=== PATIENT | female | born 1960 | race Caucasian/White ===

== ENCOUNTER → 2017-11-25 | Outpatient (CLI) | payer BC ==
[2017-11-25 14:24] LABS: INFLUENZA A PATIENT NEGATIVE (NEGATIVE); INFLUENZA B PATIENT NEGATIVE (NEGATIVE); OBC FLU VALID
[2017-11-25 14:36] LABS: NEGATIVE OBC STREP NEG; POSITIVE OBC STREP POS
== END | disposition home or self-care (01) ==
LOC: LAB 13:33
DX: J06.9 Acute upper respiratory infection, unspecified (principal)
CPT/HCPCS: 87070; 87804; 87804-59; 87880

== ENCOUNTER 2018-04-05 07:27 | Outpatient (CLI) | payer BC ==
[~2018-04-05] VITALS: Ht 152.4 cm; Wt 72.6 kg
[~2018-04-05 07:27] MED LIST: AMLO5TAB2 PO; ATOR40TA PO; CARI350T PO; DOCU-109 PO; FLUT1DIS5 IH; HYDR-210 PO; LOSA50TA6 PO; MONT10TA9 PO; MONT4GRA PO; OMEP20CA9 PO; ZOLP10TA PO
[2018-04-05] MEDS ORDERED: MIDAZOLAM HCL/PF 5 MG/5 ML VIAL. ONE (08:02)
[2018-04-05] MEDS ORDERED: fentaNYL PF VIAL 250 MCG/5 ML VIAL ONE (08:02)
[2018-04-05] MEDS ORDERED: fentaNYL PF VIAL 250 MCG/5 ML VIAL IV ONE (08:15)
[2018-04-05] MEDS ORDERED: MIDAZOLAM HCL/PF 5 MG/5 ML VIAL. IV ONE (08:15)
[2018-04-05] MEDS ORDERED: LIDOCAINE WITH 8.4% SOD BICARB 3 ML DISP.SYRIN. IJ ONE (08:15)
[2018-04-05 08:23] VITALS: BP 100/63
[2018-04-05 08:25] LABS: BASO % 1 % (0-3); EOS % 1 % (0-3); HEMATOCRIT 46.8 % (36.0-47.0); HEMOGLOBIN 16.1 g/dL (12.0-15.5); LYMPH # 2.8 x10^3/uL (1.0-4.8); LYMPH % 33 % (24-48); MEAN CORPUSCULAR HEMOGLOBIN 31 pg (25-35); MEAN CORPUSCULAR HGB CONC 34 g/dL (31-37); MEAN CORPUSCULAR VOLUME 90 fL (79-100); MONO # 0.8 x10^3/uL (0.0-1.1); MONO % 10 % (0-9); NEUT # 4.6 x10^3uL (1.8-7.7); NEUT % 56 % (31-73); PLATELET COUNT 312 x10^3/uL (140-400); RED BLOOD COUNT 5.19 x10^6/uL (3.50-5.40); RED CELL DISTRIBUTION WIDTH 14.6 % (11.5-14.5); WHITE BLOOD COUNT 8.3 x10^3/uL (4.0-11.0)
[2018-04-05 08:26] LABS: ALBUMIN 3.9 g/dL (3.4-5.0); ALBUMIN/GLOBULIN RATIO 1.1 (1.0-1.7); CALCIUM 9.1 mg/dL (8.5-10.1); CREATININE 0.5 mg/dL (0.6-1.0); GFR 127.6; POTASSIUM 3.5 mmol/L (3.5-5.1); TOTAL BILIRUBIN 0.3 mg/dL (0.2-1.0); TOTAL PROTEIN 7.5 g/dL (6.4-8.2)
[2018-04-05 08:30] LABS: PROTHROMBIN TIME PATIENT 12.1 SEC (11.7-14.0)
[2018-04-05] MEDS ORDERED: LIDOCAINE WITH 8.4% SOD BICARB 3 ML DISP.SYRIN. ONE ×2 (08:50→09:14)
[2018-04-05 09:35] VITALS: BP 123/76
[2018-04-05 09:50] VITALS: BP 101/52
--- NOTE | 2018-04-05 10:36 | RAD ---
Fluoroscopically guided percutaneous vertebroplasty, T7 04/05/2018 Indication: T7 compression fracture with severe back pain, refractory to conservative treatment measures. Pain limits her mobility. Discussion: The risks and benefits of the procedure were discussed the patient. Informed consent was obtained. A timeout procedure was performed. The posterior thorax prepped and draped using sterile barrier technique. The T7 vertebrae was identified fluoroscopically. 1% lidocaine without epinephrine was administered to the skin, subcutaneous tissues, periosteum overlying the bilateral pedicles. A trocar needle was advanced from a left transpedicular approach into the posterior T7 vertebral body. The curved cement delivery needle was advanced to the vertebral body. Methylmethacrylate bone cement was slowly instilled into the vertebral body. The right-sided vertebral body demonstrated inadequate filling. A right transpedicular trocar needle was placed, and a second cement delivery needle was advanced into the posterior right vertebral body and further cement administration was performed. Small amount of cement extravasation into the inferior disc space was noted. No other abnormal segment extravasation is seen. Needle removed and manual pressure held. The patient tolerated the procedure well without immediate complication. The procedures performed under conscious sedation including continuous cardiopulmonary monitoring via a dedicated sedation nurse. [id number] sedation time: 1 hour. Fluoroscopy time: 14 minutes Dose area product:140 uGycm2 Impression: T7 vertebral augmentation
[2018-04-05] MEDS ORDERED: oxyCODONE/APAP 5/325 1 TAB TABLET PO ONE (11:00)
[2018-04-05] MEDS ORDERED: OXYC-323 PO (11:24)
== END 2018-04-05 13:00 | disposition home or self-care (01) ==
LOC: INTRAD 07:27
PROVIDERS: ATTEND Physical Medicine & Rehabilitation
DX: M48.54XA Collapsed vertebra, not elsewhere classified, thoracic region, initial encounter for fracture (principal); M54.6 Pain in thoracic spine; Z88.5 Allergy status to narcotic agent; Z88.8 Allergy status to other drugs, medicaments and biological substances; Z79.01 Long term (current) use of anticoagulants
CPT/HCPCS: 22510; 36415; 80053; 85025; 85610; 99152; 99153; C1758; J0690; J2250; J3010

== ENCOUNTER 2019-10-14 10:59 | Inpatient (IN) | payer BC ==
[~2019-10-14] VITALS: Ht 152.4 cm; Wt 79.5 kg
[~2019-10-14 10:59] MED LIST changes: +AMLO5TAB10 PO; -AMLO5TAB2 PO; +LOSA-73 PO; -LOSA50TA6 PO; +MONT10TA49 PO; -MONT10TA9 PO; +OMEP20CA16 PO; -OMEP20CA9 PO; +OXYC1TAB15 PO
[2019-10-14] MEDS ORDERED: IPRATRPIUM/ALBUTEROL 0.5/2.5MG 3 ML NEBU. NEB ONE ×2 (11:30→12:30)
[2019-10-14] MEDS ORDERED: predniSONE 20 MG TABLET PO ONE (11:30)
[2019-10-14] MEDS ORDERED: BENZONATATE 100 MG CAPSULE. PO ONE (11:30)
[2019-10-14 12:11] LABS: INFLUENZA A PATIENT NEGATIVE (NEGATIVE); INFLUENZA B PATIENT NEGATIVE (NEGATIVE)
--- NOTE | 2019-10-14 12:15 | RAD ---
CHEST PA LATERAL Clinical indications: Cough. COMPARISON: August 18, 2013. Findings: Hyperinflation is seen consistent with COPD. There is increased interstitial and nodular lung infiltrates within both lung bases which is new. No pleural effusion or lung mass or pneumothorax is seen. The heart size, pulmonary vasculature, mediastinum and both shannen are unremarkable. Compression fracture mid thoracic vertebral body seen which has been treated with vertebroplasty. Impression: COPD. Bibasilar lung infiltrates. Electronically signed by: Bhupendra Campos MD (10/14/2019 12:12 PM) [facility]
[2019-10-14] MEDS ORDERED: ALBUTEROL SULFATE 2.5 MG/3 ML NEBU. CONT NEB ONE (12:30)
[2019-10-14] MEDS ORDERED: AZITHRMYCN 500MG IVPB FOR OMNI 250 ML IV ONE (13:00)
[2019-10-14] MEDS ORDERED: cefTRIAXone IV Push 1 GM VIAL. IVP ONE (13:00)
[2019-10-14 13:27] LABS: CALCIUM 8.7 mg/dL (8.5-10.1); CREATININE 0.6 mg/dL (0.6-1.0); POTASSIUM 3.1 mmol/L (3.5-5.1)
[2019-10-14 13:29] LABS: BASO % 0 % (0-3); EOS % 0 % (0-3); HEMATOCRIT 37.6 % (36.0-47.0); HEMOGLOBIN 12.7 g/dL (12.0-15.5); LYMPH # 1.2 x10^3/uL (1.0-4.8); LYMPH % 11 % (24-48); MEAN CORPUSCULAR HEMOGLOBIN 30 pg (25-35); MEAN CORPUSCULAR HGB CONC 34 g/dL (31-37); MEAN CORPUSCULAR VOLUME 89 fL (79-100); MONO # 0.6 x10^3/uL (0.0-1.1); MONO % 5 % (0-9); NEUT # 9.6 x10^3/uL (1.8-7.7); NEUT % 83 % (31-73); PLATELET COUNT 497 x10^3/uL (140-400); RED BLOOD COUNT 4.23 x10^6/uL (3.50-5.40); WHITE BLOOD COUNT 11.6 x10^3/uL (4.0-11.0)
[2019-10-14] MEDS ORDERED: POTASSIUM CHLORIDE 20 MEQ TABLET.ER. PO ONE (13:30)
[2019-10-14 13:33] LABS: ALBUMIN 2.7 g/dL (3.4-5.0); ALBUMIN/GLOBULIN RATIO 0.6 (1.0-1.7); TOTAL BILIRUBIN 0.2 mg/dL (0.2-1.0); TOTAL PROTEIN 7.6 g/dL (6.4-8.2)
[2019-10-14] MEDS ORDERED: ONDANSETRON PF 4 MG/2 ML VIAL. IV PRN ×2 (14:30→15:15)
[2019-10-14] MEDS ORDERED: ACETAMINOPHEN 325 MG TABLET. PO PRN ×2 (14:30→15:15)
--- NOTE | 2019-10-14 14:35 | PHYS DOC ---
Past Medical History Past Medical History: Bronchitis, COPD, High Cholesterol Additional Past Medical Histor: OSTEOPOROSIS, CHRONIC NECK AND BACK PAIN Past Surgical History: Appendectomy, Hysterectomy, Tonsillectomy, Tubal ligation Additional Past Surgical Histo: BLADDER TIGHTENING Smoking Status: Current Every Day Smoker Alcohol Use: None Drug Use: Marijuana Adult General Chief Complaint Chief Complaint: FLU SYMPTOM HPI HPI Patient is a 58 year old female who presents to the ED today complaining of a productive cough, body aches, chills, subjective fevers, shortness of breath symptoms for 3 weeks. Patient reports history of COPD, current smoker, high cholesterol, asthma. Patient reports symptoms got worse this morning when she woke up, she states her shortness of breath and increased especially on exertion. Review of Systems Review of Systems Constitutional: Reports fever, body aches and chills Eyes: Denies change in visual acuity, redness, or eye pain [] HENT: Denies nasal congestion or sore throat [] Respiratory: Reports cough and shortness of breath [] Cardiovascular: No additional information not addressed in HPI [] GI: Denies abdominal pain, nausea, vomiting, bloody stools or diarrhea [] : Denies dysuria or hematuria [] Musculoskeletal: Denies back pain or joint pain [] Integument: Denies rash or skin lesions [] Neurologic: Denies headache, focal weakness or sensory changes [] All other systems were reviewed and found to be within normal limits, except as documented in this note. Current Medications Current Medications Current Medications Medications (Trade) Dose Ordered Sig/Tammi Start Time Stop Time Status Last Admin Dose Admin Albuterol Sulfate (Ventolin Neb Soln) 10 mg 1X ONCE 10/14/19 12:30 10/14/19 12:31 DC 10/14/19 12:39 10 MG Albuterol/ Ipratropium (Duoneb) 3 ml 1X ONCE 10/14/19 12:30 10/14/19 12:31 DC 10/14/19 12:39 3 ML Azithromycin 250 ml @ 250 mls/hr 1X ONCE 10/14/19 13:00 10/14/19 13:59 DC 10/14/19 13:24 250 MLS/HR Benzonatate (Tessalon Perle) 100 mg 1X ONCE 10/14/19 11:30 10/14/19 11:31 DC 2/22/20 11:26 100 MG Ceftriaxone Sodium (Rocephin) 1 gm 1X ONCE 10/14/19 13:00 10/14/19 13:01 DC 10/14/19 13:25 1 GM Potassium Chloride (Klor-Con) 40 meq 1X ONCE 10/14/19 13:30 10/14/19 13:31 DC 10/14/19 14:30 40 MEQ Prednisone (Prednisone) 60 mg 1X ONCE 10/14/19 11:30 10/14/19 11:31 DC 10/14/19 11:26 60 MG Allergies Allergies Allergies Coded Allergies Type Severity Reaction Last Updated Verified NSAIDS (Non-Steroidal Anti-Inflamma Allergy Intermediate CAUSES STOMACH IRRITATION 11/19/15 Yes morphine Allergy Intermediate blisters 04/05/18 Yes Physical Exam Physical Exam Constitutional: Well developed, well nourished, no acute distress, non-toxic appearance. [] HENT: Normocephalic, atraumatic, bilateral external ears normal, oropharynx moist, no oral exudates, nose normal. [] Eyes: PERRLA, EOMI, conjunctiva normal, no discharge. [] Neck: Normal range of motion, no tenderness, supple, no stridor. [] Cardiovascular:Heart rate regular rhythm, no murmur [] Lungs & Thorax: Diffuse wheezing throughout the lung bases, patient appears short of air on exertion. Abdomen: Bowel sounds normal, soft, no tenderness, no masses, no pulsatile masses. [] Skin: Warm, dry, no erythema, no rash. [] Back: No tenderness, no CVA tenderness. [] Extremities: No tenderness, no cyanosis, no clubbing, ROM intact, no edema. [] Neurologic: Alert and oriented X 3, normal motor function, normal sensory function, no focal deficits noted. [] Psychologic: Affect normal, judgement normal, mood normal. [] Current Patient Data Vital Signs Vital Signs Date Time Temp Pulse Resp B/P (MAP) Pulse Ox O2 Delivery O2 Flow Rate FiO2 10/14/19 13:15 90 145/65 (91) 93 Nasal Cannula 4.0 10/14/19 11:20 98.5 24 98.5 Lab Values Laboratory Tests Test 10/14/19 11:30 10/14/19 13:00 10/14/19 13:15 Influenza Type A Antigen Negative (NEGATIVE) Influenza Type B Antigen Negative (NEGATIVE) Sodium Level 141 mmol/L (136-145) Potassium Level 3.1 mmol/L (3.5-5.1) L Chloride Level 98 mmol/L (98-107) Carbon Dioxide Level 35 mmol/L (21-32) H Anion Gap 8 (6-14) Blood Urea Nitrogen 8 mg/dL (7-20) Creatinine 0.6 mg/dL (0.6-1.0) Estimated GFR (Cockcroft-Gault) 103.0 BUN/Creatinine Ratio 13 (6-20) Glucose Level 110 mg/dL (70-99) H Calcium Level 8.7 mg/dL (8.5-10.1) Total Bilirubin 0.2 mg/dL (0.2-1.0) Aspartate Amino Transferase (AST) 19 U/L (15-37) Alanine Aminotransferase (ALT) 22 U/L (14-59) Alkaline Phosphatase 92 U/L (46-116) Total Protein 7.6 g/dL (6.4-8.2) Albumin 2.7 g/dL (3.4-5.0) L Albumin/Globulin Ratio 0.6 (1.0-1.7) L Procalcitonin < 0.10 ng/mL (0.00-0.10) White Blood Count 11.6 x10^3/uL (4.0-11.0) H Red Blood Count 4.23 x10^6/uL (3.50-5.40) Hemoglobin 12.7 g/dL (12.0-15.5) Hematocrit 37.6 % (36.0-47.0) Mean Corpuscular Volume 89 fL (79-100) Mean Corpuscular Hemoglobin 30 pg (25-35) Mean Corpuscular Hemoglobin Concent 34 g/dL (31-37) Red Cell Distribution Width 15.0 % (11.5-14.5) H Platelet Count 497 x10^3/uL (140-400) H Neutrophils (%) (Auto) 83 % (31-73) H Lymphocytes (%) (Auto) 11 % (24-48) L Monocytes (%) (Auto) 5 % (0-9) Eosinophils (%) (Auto) 0 % (0-3) Basophils (%) (Auto) 0 % (0-3) Neutrophils # (Auto) 9.6 x10^3/uL (1.8-7.7) H Lymphocytes # (Auto) 1.2 x10^3/uL (1.0-4.8) Monocytes # (Auto) 0.6 x10^3/uL (0.0-1.1) Eosinophils # (Auto) 0.0 x10^3/uL (0.0-0.7) Basophils # (Auto) 0.0 x10^3/uL (0.0-0.2) Lactic Acid Level 0.6 mmol/L (0.4-2.0) Laboratory Tests 10/14/19 13:15 Laboratory Tests 10/14/19 13:00 EKG EKG [] Radiology/Procedures Radiology/Procedures []PROCEDURE: CHEST PA & LATERAL CHEST PA LATERAL Clinical indications: Cough. COMPARISON: August 18, 2013. Findings: Hyperinflation is seen consistent with COPD. There is increased interstitial and nodular lung infiltrates within both lung bases which is new. No pleural effusion or lung mass or pneumothorax is seen. The heart size, pulmonary vasculature, mediastinum and both shannen are unremarkable. Compression fracture mid thoracic vertebral body seen which has been treated with vertebroplasty. Impression: COPD. Bibasilar lung infiltrates. Electronically signed by: Jose Campos MD (10/14/2019 12:12 PM) [facility] DICTATED and SIGNED BY: JOSE CAMPOS MD DATE: 10/14/19 1212 Course & Med Decision Making Course & Med Decision Making Pertinent Labs and Imaging studies reviewed. (See chart for details) This is a 58-year-old female patient presenting to the ED today with productive cough, shortness of breath, subjective fevers body aches symptoms began 3 weeks ago. Patient arrives in the ED with O2 sats at 77% on room air. He was put on 4 L of oxygen, O2 sats went up to 90%. Chest x-ray interpreted by radiologist -COPD. Bibasilar lung infiltrates. CBC with a WBC of 11.6, CMP with potassium of 3.1, patient was given oral potassium replacement. Started on Rocephin and Zosyn in the ED Spoke with Dr. Asif who accepted patient for admission Dragon Disclaimer Dragon Disclaimer This electronic medical record was generated, in whole or in part, using a voice recognition dictation system. Departure Departure Impression: Primary Impression: Bilateral pulmonary infiltrates on chest x-ray Additional Impressions: Hypoxia COPD exacerbation Smoking addiction Disposition: 09 ADMITTED INPATIENT Condition: STABLE Referrals: AWILDA DEAL MD (PCP) Problem Qualifiers PERNELL JOSHI APRN Oct 14, 2019 14:35
[2019-10-14 15:00] VITALS: BP 127/71
[2019-10-14] MEDS ORDERED: ALEN70TA6 PO (15:12)
[2019-10-14] MEDS ORDERED: BUDE10.2 IH ×2 (15:12→15:47)
[2019-10-14] MEDS ORDERED: CETI10TA16 PO (15:12)
--- NOTE | 2019-10-14 15:13 | PDOC1 ---
History and Physical Date of Admission Date of Admission 10/14/2019 Identification/Chief Complaint Chief Complaint I couldn't breathe Source Source: Chart review, Patient History of Present Illness History of Present Illness Patient is a 58-year-old female with past medical history of hypertension COPD and tobacco abuse was in her usual state of health until 4 weeks prior to her admission when she started developing cold-like symptoms. Sneezing congestion postnasal drip cough productive of sputum production clear. Patient denied any sick contacts no fever or chills no pleurisy was reported. The patient self medicated with NyQuil and DayQuil with very little relief of her symptoms. She did not seek medical attention at that time but unfortunately he she has developed worsening of her symptoms and over the last 4 days she has been unable to do her activities of daily living without significant effort. This morning the patient was found to be quite short of breath and she was summoned to the ER by her where she was found to have an oxygen saturation the mid 80s. The patient did not percent confusion she denies headache at the present time no blurred vision she has had very low oral intake as a consequence of her symptoms and she did develop some chills the day prior to her admission. The patient was evaluated in the emergency department and found to have a pneumonia reason why we were asked to admit the patient for further treatment. At the time my evaluation the patient is in no acute distress her respiratory effort is somewhat increase, the patient is an active smoker and greater than 5 minutes counseling was done and the importance of abstaining from smoking was stressed to the patient. Her significant other is at bedside and is also a green with the proposed plan of care. Past Medical History Cardiovascular: HTN Pulmonary: COPD Current Problem List Problem List Problems Medical Problems: (1) Bilateral pulmonary infiltrates on chest x-ray Status: Acute (2) COPD exacerbation Status: Acute (3) Hypoxia Status: Acute Current Medications Current Medications Current Medications Medications (Trade) Dose Ordered Sig/Tammi Start Time Stop Time Status Last Admin Dose Admin Acetaminophen (Tylenol) 650 mg PRN Q4HRS PRN 10/14/19 14:30 10/15/19 14:29 10/14/19 14:52 650 MG Albuterol Sulfate (Ventolin Neb Soln) 10 mg 1X ONCE 10/14/19 12:30 10/14/19 12:31 DC 10/14/19 12:39 10 MG Albuterol/ Ipratropium (Duoneb) 3 ml RTQID 10/14/19 16:00 10/15/19 15:59 Azithromycin 250 ml @ 250 mls/hr 1X ONCE 10/14/19 13:00 10/14/19 13:59 DC 10/14/19 13:24 250 MLS/HR Benzonatate (Tessalon Perle) 100 mg 1X ONCE 10/14/19 11:30 10/14/19 11:31 DC 10/14/19 11:26 100 MG Ceftriaxone Sodium (Rocephin) 1 gm 1X ONCE 10/14/19 13:00 10/14/19 13:01 DC 10/14/19 13:25 1 GM Ondansetron HCl (Zofran) 4 mg PRN Q8HRS PRN 10/14/19 14:30 10/15/19 14:29 Potassium Chloride (Klor-Con) 40 meq 1X ONCE 10/14/19 13:30 10/14/19 13:31 DC 10/14/19 14:30 40 MEQ Prednisone (Prednisone) 60 mg 1X ONCE 10/14/19 11:30 10/14/19 11:31 DC 10/14/19 11:26 60 MG Allergies Allergies Allergies Coded Allergies Type Severity Reaction Last Updated Verified NSAIDS (Non-Steroidal Anti-Inflamma Allergy Intermediate CAUSES STOMACH IRRITATION 11/19/15 Yes morphine Allergy Intermediate blisters 04/05/18 Yes ROS Review of System CONSTITUTIONAL: + fever + chills EYES: No recent changes SKIN: No rash or itching CARDIOVASCULAR: No chest pain, syncope, palpitations, or edema RESPIRATORY: + SOB and cough GASTROINTESTINAL: No nausea, vomiting or abdominal pain NEUROLOGICAL: No headaches or weakness ENDOCRINE: No cold or heat intolerance GENITOURINARY: No urgency or frequency of urination MUSCULOSKELETAL: No back pain or joint pain LYMPHATICS: No enlarged lymph nodes PSYCHIATRIC: No anxiety or depression Physical Exam Physical Exam Gen.: Obese and disheveled and moderate apparent distress Head: Normal shape atraumatic Eyes: Pupils equal reactive to light and accommodation, normal conjunctivae and lids Ears: Normal shape Nose: Normal shape no trauma Mouth: Poor dentition. No exudates of the back of throat no thrush no lesions Neck: Supple no JVD no carotid bruit or lymphadenopathy no thyromegaly Chest: Lungs clear to auscultation with good inspiratory effort no crackles rales or rhonchi Cardiovascular: S1-S2 regular rhythm no murmurs gallops or rubs Abdomen: Bowel sounds present soft nontender no hepatosplenomegaly appreciated sign Extremities: No clubbing no cyanosis no edema peripheral pulses palpated bilaterally Neurological: Alert awake oriented in person time place and situation, cranial nerves II through XII intact, no motor or sensory deficits appreciated Psych: Appropriate mood, cooperative Vitals Vitals Vital Signs Date Time Temp Pulse Resp B/P (MAP) Pulse Ox O2 Delivery O2 Flow Rate FiO2 10/14/19 13:15 90 145/65 (91) 93 Nasal Cannula 4.0 10/14/19 11:20 98.5 24 98.5 Labs Labs Laboratory Tests Test 10/14/19 11:30 10/14/19 13:00 10/14/19 13:15 Influenza Type A Antigen Negative (NEGATIVE) Influenza Type B Antigen Negative (NEGATIVE) Sodium Level 141 mmol/L (136-145) Potassium Level 3.1 mmol/L (3.5-5.1) Chloride Level 98 mmol/L (98-107) Carbon Dioxide Level 35 mmol/L (21-32) Anion Gap 8 (6-14) Blood Urea Nitrogen 8 mg/dL (7-20) Creatinine 0.6 mg/dL (0.6-1.0) Estimated GFR (Cockcroft-Gault) 103.0 BUN/Creatinine Ratio 13 (6-20) Glucose Level 110 mg/dL (70-99) Calcium Level 8.7 mg/dL (8.5-10.1) Total Bilirubin 0.2 mg/dL (0.2-1.0) Aspartate Amino Transf (AST/SGOT) 19 U/L (15-37) Alanine Aminotransferase (ALT/SGPT) 22 U/L (14-59) Alkaline Phosphatase 92 U/L (46-116) Total Protein 7.6 g/dL (6.4-8.2) Albumin 2.7 g/dL (3.4-5.0) Albumin/Globulin Ratio 0.6 (1.0-1.7) Procalcitonin < 0.10 ng/mL (0.00-0.10) White Blood Count 11.6 x10^3/uL (4.0-11.0) Red Blood Count 4.23 x10^6/uL (3.50-5.40) Hemoglobin 12.7 g/dL (12.0-15.5) Hematocrit 37.6 % (36.0-47.0) Mean Corpuscular Volume 89 fL (79-100) Mean Corpuscular Hemoglobin 30 pg (25-35) Mean Corpuscular Hemoglobin Concent 34 g/dL (31-37) Red Cell Distribution Width 15.0 % (11.5-14.5) Platelet Count 497 x10^3/uL (140-400) Neutrophils (%) (Auto) 83 % (31-73) Lymphocytes (%) (Auto) 11 % (24-48) Monocytes (%) (Auto) 5 % (0-9) Eosinophils (%) (Auto) 0 % (0-3) Basophils (%) (Auto) 0 % (0-3) Neutrophils # (Auto) 9.6 x10^3/uL (1.8-7.7) Lymphocytes # (Auto) 1.2 x10^3/uL (1.0-4.8) Monocytes # (Auto) 0.6 x10^3/uL (0.0-1.1) Eosinophils # (Auto) 0.0 x10^3/uL (0.0-0.7) Basophils # (Auto) 0.0 x10^3/uL (0.0-0.2) Lactic Acid Level 0.6 mmol/L (0.4-2.0) Laboratory Tests Test 10/14/19 11:30 10/14/19 13:00 10/14/19 13:15 Influenza Type A Antigen Negative (NEGATIVE) Influenza Type B Antigen Negative (NEGATIVE) Sodium Level 141 mmol/L (136-145) Potassium Level 3.1 mmol/L (3.5-5.1) Chloride Level 98 mmol/L (98-107) Carbon Dioxide Level 35 mmol/L (21-32) Anion Gap 8 (6-14) Blood Urea Nitrogen 8 mg/dL (7-20) Creatinine 0.6 mg/dL (0.6-1.0) Estimated GFR (Cockcroft-Gault) 103.0 BUN/Creatinine Ratio 13 (6-20) Glucose Level 110 mg/dL (70-99) Calcium Level 8.7 mg/dL (8.5-10.1) Total Bilirubin 0.2 mg/dL (0.2-1.0) Aspartate Amino Transf (AST/SGOT) 19 U/L (15-37) Alanine Aminotransferase (ALT/SGPT) 22 U/L (14-59) Alkaline Phosphatase 92 U/L (46-116) Total Protein 7.6 g/dL (6.4-8.2) Albumin 2.7 g/dL (3.4-5.0) Albumin/Globulin Ratio 0.6 (1.0-1.7) Procalcitonin < 0.10 ng/mL (0.00-0.10) White Blood Count 11.6 x10^3/uL (4.0-11.0) Red Blood Count 4.23 x10^6/uL (3.50-5.40) Hemoglobin 12.7 g/dL (12.0-15.5) Hematocrit 37.6 % (36.0-47.0) Mean Corpuscular Volume 89 fL (79-100) Mean Corpuscular Hemoglobin 30 pg (25-35) Mean Corpuscular Hemoglobin Concent 34 g/dL (31-37) Red Cell Distribution Width 15.0 % (11.5-14.5) Platelet Count 497 x10^3/uL (140-400) Neutrophils (%) (Auto) 83 % (31-73) Lymphocytes (%) (Auto) 11 % (24-48) Monocytes (%) (Auto) 5 % (0-9) Eosinophils (%) (Auto) 0 % (0-3) Basophils (%) (Auto) 0 % (0-3) Neutrophils # (Auto) 9.6 x10^3/uL (1.8-7.7) Lymphocytes # (Auto) 1.2 x10^3/uL (1.0-4.8) Monocytes # (Auto) 0.6 x10^3/uL (0.0-1.1) Eosinophils # (Auto) 0.0 x10^3/uL (0.0-0.7) Basophils # (Auto) 0.0 x10^3/uL (0.0-0.2) Lactic Acid Level 0.6 mmol/L (0.4-2.0) Images Images [facility] [address] [place] [address] IMAGING REPORT Signed PATIENT: COLLEEN HOLLY AACCOUNT: [id number] : 1960 LOCATION: ER AGE: 58 SEX: F EXAM STATUS: PRE ER ORD. PHYSICIAN: PERNELL JOSHI APRN REASON: cough PROCEDURE: CHEST PA & LATERAL CHEST PA LATERAL Clinical indications: Cough. COMPARISON: August 18, 2013. Findings: Hyperinflation is seen consistent with COPD. There is increased interstitial and nodular lung infiltrates within both lung bases which is new. No pleural effusion or lung mass or pneumothorax is seen. The heart size, pulmonary vasculature, mediastinum and both shannen are unremarkable. Compression fracture mid thoracic vertebral body seen which has been treated with vertebroplasty. Impression: COPD. Bibasilar lung infiltrates. Electronically signed by: Bhupendra Campos MD (10/14/2019 12:12 PM) [facility] VTE Prophylaxis Ordered VTE Prophylaxis Devices: No VTE Pharmacological Prophylaxi: Yes Assessment/Plan Assessment/Plan Bibasilar community-acquired pneumonia History of tobacco abuse greater than [id number] history of smoking COPD currently in acute exacerbation secondary to pneumonic process History of essential hypertension Leukocytosis Hypo kalemia Plan: Protocol with Rocephin and Zithromax Resume home medications Tobacco counseling has been done less than 10 minutes Resume home medications Symptomatic relief of symptoms Further recommendations based on the clinical course sign due to prophylaxis with Lovenox HERMELINDO FLORES MD Oct 14, 2019 15:13
[2019-10-14] MEDS ORDERED: ZOLPIDEM 5 MG TABLET. PO PRN (15:15)
[2019-10-14] MEDS ORDERED: DOCUSATE SODIUM 100 MG CAPSULE. PO PRN (15:15)
[2019-10-14] MEDS ORDERED: guaiFENesin ORAL 200 MG/10 ML LIQUID. PO PRN ×2 (15:15)
[2019-10-14] MEDS ORDERED: IPRATRPIUM/ALBUTEROL 0.5/2.5MG 3 ML NEBU. NEB SCH (16:00)
[2019-10-14] MEDS: ENOXAPARIN 40 MG/0.4 ML SYRINGE. SQ SCH (16:37)
[2019-10-14] MEDS: IPRATRPIUM/ALBUTEROL 0.5/2.5MG 3 ML NEBU. NEB SCH ×2 (17:11→19:48)
[2019-10-14] MEDS: oxyCODONE/APAP 5/325 1 TAB TABLET PO PRN (18:22)
[2019-10-14 19:00] VITALS: BP 120/62
[2019-10-14] MEDS: ATORVASTATIN CALCIUM 40 MG TABLET. PO SCH (21:16)
[2019-10-14] MEDS: DOCUSATE SODIUM 100 MG CAPSULE. PO SCH (21:16)
[2019-10-14] MEDS: MONTELUKAST SODIUM 10 MG TABLET. PO SCH (21:16)
[2019-10-14] MEDS: ZOLPIDEM 5 MG TABLET. PO SCH (21:16)
[2019-10-14] MEDS: SYMBICORT 160/4.5 NEB SCH (21:17)
[2019-10-14 23:00] VITALS: BP 132/61
[2019-10-15 03:00] VITALS: BP 126/52
[2019-10-15] MEDS: oxyCODONE/APAP 5/325 1 TAB TABLET PO PRN ×4 (03:32→20:43)
[2019-10-15] MEDS: IPRATRPIUM/ALBUTEROL 0.5/2.5MG 3 ML NEBU. NEB SCH ×5 (04:00→16:34)
[2019-10-15 05:11] LABS: BASO % 0 % (0-3); EOS % 0 % (0-3); HEMATOCRIT 36.3 % (36.0-47.0); HEMOGLOBIN 11.9 g/dL (12.0-15.5); LYMPH % 24 % (24-48); MEAN CORPUSCULAR HEMOGLOBIN 29 pg (25-35); MEAN CORPUSCULAR HGB CONC 33 g/dL (31-37); MEAN CORPUSCULAR VOLUME 90 fL (79-100); MONO # 1.2 x10^3/uL (0.0-1.1); MONO % 14 % (0-9); NEUT # 5.4 x10^3/uL (1.8-7.7); NEUT % 62 % (31-73); PLATELET COUNT 476 x10^3/uL (140-400); RED BLOOD COUNT 4.05 x10^6/uL (3.50-5.40); RED CELL DISTRIBUTION WIDTH 14.8 % (11.5-14.5); WHITE BLOOD COUNT 8.6 x10^3/uL (4.0-11.0)
[2019-10-15 05:38] LABS: CALCIUM 8.5 mg/dL (8.5-10.1); CREATININE 0.5 mg/dL (0.6-1.0); GFR 127.2; POTASSIUM 3.2 mmol/L (3.5-5.1)
[2019-10-15] MEDS: LORazepam 0.5 MG TABLET PO PRN ×3 (06:33→22:15)
[2019-10-15] MEDS: PANTOPRAZOLE 40 MG TABLET.DR. PO SCH (06:33)
[2019-10-15 07:00] VITALS: BP 131/66
[2019-10-15] MEDS: LOSARTAN POTASSIUM 50 MG TABLET. PO SCH (08:44)
[2019-10-15] MEDS: CETIRIZINE HCL 10 MG TABLET. PO SCH (08:44)
[2019-10-15] MEDS: DOCUSATE SODIUM 100 MG CAPSULE. PO SCH ×2 (08:44→20:40)
[2019-10-15] MEDS: POTASSIUM CHLORIDE 20 MEQ TABLET.ER. PO SCH ×2 (08:45→09:58)
[2019-10-15] MEDS: amLODIPine BESYLATE 5 MG TABLET PO SCH (08:45)
[2019-10-15] MEDS: SYMBICORT 160/4.5 NEB SCH ×2 (08:46→20:44)
[2019-10-15] MEDS ORDERED: ALBUTEROL SULFATE 2.5 MG/3 ML NEBU. NEB SCH (09:00)
[2019-10-15] MEDS: IV NORMAL SALINE 1000ML BAG 1,000 ML IV SCH ×2 (09:57→20:50)
--- NOTE | 2019-10-15 10:52 | PDOC ---
PROGRESS NOTES Chief Complaint Chief Complaint Bibasilar community-acquired pneumonia slowly improving History of tobacco abuse greater than [id number] history of smoking COPD currently in acute exacerbation secondary to pneumonic process History of essential hypertension Leukocytosis improved Hypo kalemia replaced Smoking cessation counseling 10 minutes Continue with current steroids and broad-spectrum antibiotics We'll do Mucomyst for secretion management Flutter valve Encourage more ambulation Further accommodations based on the clinical course Reassess in the a.m. DVT prophylaxis with Lovenox History of Present Illness History of Present Illness Still feeling under the weather. The patient doesn't feel like she is making much progress in her cough is getting worse. She is unable to expectorate the secretions since her quite thick. Reassurance has been provided all of her concerns were addressed to the best of my abilities smoking cessation counseling took place again around 10 minutes Vitals Vitals Vital Signs Date Time Temp Pulse Resp B/P (MAP) Pulse Ox O2 Delivery O2 Flow Rate FiO2 10/15/19 10:11 Nasal Cannula 10/15/19 08:45 83 131/66 10/15/19 08:21 92 5.0 10/15/19 07:00 98.6 18 98.6 Physical Exam Physical Exam Gen.: well-developed well-nourished in no apparent distress Head: Normal shape atraumatic Eyes: Pupils equal reactive to light and accommodation, normal conjunctivae and lids Ears: Normal shape Nose: Normal shape no trauma Mouth: No exudates of the back of throat no thrush no lesions Neck: Supple no JVD no carotid bruit or lymphadenopathy no thyromegaly Chest: Lungs with coarse breath sounds, expiratory wheezing no increased work of breathing superficial breathing effort Cardiovascular: S1-S2 regular rhythm no murmurs gallops or rubs Abdomen: Bowel sounds present soft nontender no hepatosplenomegaly appreciated sign Extremities: No clubbing no cyanosis no edema peripheral pulses palpated bilaterally Neurological: Alert awake oriented in person time place and situation, cranial nerves II through XII intact, no motor or sensory deficits appreciated Psych: Appropriate mood, cooperative Labs LABS Laboratory Tests Test 10/14/19 11:30 10/14/19 13:00 10/14/19 13:15 10/15/19 04:20 Influenza Type A Antigen Negative (NEGATIVE) Influenza Type B Antigen Negative (NEGATIVE) Sodium Level 141 mmol/L (136-145) 140 mmol/L (136-145) Potassium Level 3.1 mmol/L (3.5-5.1) 3.2 mmol/L (3.5-5.1) Chloride Level 98 mmol/L (98-107) 101 mmol/L (98-107) Carbon Dioxide Level 35 mmol/L (21-32) 33 mmol/L (21-32) Anion Gap 8 (6-14) 6 (6-14) Blood Urea Nitrogen 8 mg/dL (7-20) 10 mg/dL (7-20) Creatinine 0.6 mg/dL (0.6-1.0) 0.5 mg/dL (0.6-1.0) Estimated GFR (Cockcroft-Gault) 103.0 127.2 BUN/Creatinine Ratio 13 (6-20) Glucose Level 110 mg/dL (70-99) 124 mg/dL (70-99) Calcium Level 8.7 mg/dL (8.5-10.1) 8.5 mg/dL (8.5-10.1) Total Bilirubin 0.2 mg/dL (0.2-1.0) Aspartate Amino Transf (AST/SGOT) 19 U/L (15-37) Alanine Aminotransferase (ALT/SGPT) 22 U/L (14-59) Alkaline Phosphatase 92 U/L (46-116) Total Protein 7.6 g/dL (6.4-8.2) Albumin 2.7 g/dL (3.4-5.0) Albumin/Globulin Ratio 0.6 (1.0-1.7) Procalcitonin < 0.10 ng/mL (0.00-0.10) White Blood Count 11.6 x10^3/uL (4.0-11.0) 8.6 x10^3/uL (4.0-11.0) Red Blood Count 4.23 x10^6/uL (3.50-5.40) 4.05 x10^6/uL (3.50-5.40) Hemoglobin 12.7 g/dL (12.0-15.5) 11.9 g/dL (12.0-15.5) Hematocrit 37.6 % (36.0-47.0) 36.3 % (36.0-47.0) Mean Corpuscular Volume 89 fL (79-100) 90 fL (79-100) Mean Corpuscular Hemoglobin 30 pg (25-35) 29 pg (25-35) Mean Corpuscular Hemoglobin Concent 34 g/dL (31-37) 33 g/dL (31-37) Red Cell Distribution Width 15.0 % (11.5-14.5) 14.8 % (11.5-14.5) Platelet Count 497 x10^3/uL (140-400) 476 x10^3/uL (140-400) Neutrophils (%) (Auto) 83 % (31-73) 62 % (31-73) Lymphocytes (%) (Auto) 11 % (24-48) 24 % (24-48) Monocytes (%) (Auto) 5 % (0-9) 14 % (0-9) Eosinophils (%) (Auto) 0 % (0-3) 0 % (0-3) Basophils (%) (Auto) 0 % (0-3) 0 % (0-3) Neutrophils # (Auto) 9.6 x10^3/uL (1.8-7.7) 5.4 x10^3/uL (1.8-7.7) Lymphocytes # (Auto) 1.2 x10^3/uL (1.0-4.8) 2.0 x10^3/uL (1.0-4.8) Monocytes # (Auto) 0.6 x10^3/uL (0.0-1.1) 1.2 x10^3/uL (0.0-1.1) Eosinophils # (Auto) 0.0 x10^3/uL (0.0-0.7) 0.0 x10^3/uL (0.0-0.7) Basophils # (Auto) 0.0 x10^3/uL (0.0-0.2) 0.0 x10^3/uL (0.0-0.2) Lactic Acid Level 0.6 mmol/L (0.4-2.0) Review of Systems Review of Systems ROS negative except pertinent as per history of present illness Assessment and Plan Assessmemt and Plan Problems Medical Problems: (1) Bilateral pulmonary infiltrates on chest x-ray Status: Acute (2) COPD exacerbation Status: Acute (3) Hypoxia Status: Acute (4) Smoking addiction Status: Acute Comment Review of Relevant I have reviewed the following items yang (where applicable) has been applied. Labs Laboratory Tests Test 10/14/19 11:30 10/14/19 13:00 10/14/19 13:15 10/15/19 04:20 Influenza Type A Antigen Negative (NEGATIVE) Influenza Type B Antigen Negative (NEGATIVE) Sodium Level 141 mmol/L (136-145) 140 mmol/L (136-145) Potassium Level 3.1 mmol/L (3.5-5.1) 3.2 mmol/L (3.5-5.1) Chloride Level 98 mmol/L (98-107) 101 mmol/L (98-107) Carbon Dioxide Level 35 mmol/L (21-32) 33 mmol/L (21-32) Anion Gap 8 (6-14) 6 (6-14) Blood Urea Nitrogen 8 mg/dL (7-20) 10 mg/dL (7-20) Creatinine 0.6 mg/dL (0.6-1.0) 0.5 mg/dL (0.6-1.0) Estimated GFR (Cockcroft-Gault) 103.0 127.2 BUN/Creatinine Ratio 13 (6-20) Glucose Level 110 mg/dL (70-99) 124 mg/dL (70-99) Calcium Level 8.7 mg/dL (8.5-10.1) 8.5 mg/dL (8.5-10.1) Total Bilirubin 0.2 mg/dL (0.2-1.0) Aspartate Amino Transf (AST/SGOT) 19 U/L (15-37) Alanine Aminotransferase (ALT/SGPT) 22 U/L (14-59) Alkaline Phosphatase 92 U/L (46-116) Total Protein 7.6 g/dL (6.4-8.2) Albumin 2.7 g/dL (3.4-5.0) Albumin/Globulin Ratio 0.6 (1.0-1.7) Procalcitonin < 0.10 ng/mL (0.00-0.10) White Blood Count 11.6 x10^3/uL (4.0-11.0) 8.6 x10^3/uL (4.0-11.0) Red Blood Count 4.23 x10^6/uL (3.50-5.40) 4.05 x10^6/uL (3.50-5.40) Hemoglobin 12.7 g/dL (12.0-15.5) 11.9 g/dL (12.0-15.5) Hematocrit 37.6 % (36.0-47.0) 36.3 % (36.0-47.0) Mean Corpuscular Volume 89 fL (79-100) 90 fL (79-100) Mean Corpuscular Hemoglobin 30 pg (25-35) 29 pg (25-35) Mean Corpuscular Hemoglobin Concent 34 g/dL (31-37) 33 g/dL (31-37) Red Cell Distribution Width 15.0 % (11.5-14.5) 14.8 % (11.5-14.5) Platelet Count 497 x10^3/uL (140-400) 476 x10^3/uL (140-400) Neutrophils (%) (Auto) 83 % (31-73) 62 % (31-73) Lymphocytes (%) (Auto) 11 % (24-48) 24 % (24-48) Monocytes (%) (Auto) 5 % (0-9) 14 % (0-9) Eosinophils (%) (Auto) 0 % (0-3) 0 % (0-3) Basophils (%) (Auto) 0 % (0-3) 0 % (0-3) Neutrophils # (Auto) 9.6 x10^3/uL (1.8-7.7) 5.4 x10^3/uL (1.8-7.7) Lymphocytes # (Auto) 1.2 x10^3/uL (1.0-4.8) 2.0 x10^3/uL (1.0-4.8) Monocytes # (Auto) 0.6 x10^3/uL (0.0-1.1) 1.2 x10^3/uL (0.0-1.1) Eosinophils # (Auto) 0.0 x10^3/uL (0.0-0.7) 0.0 x10^3/uL (0.0-0.7) Basophils # (Auto) 0.0 x10^3/uL (0.0-0.2) 0.0 x10^3/uL (0.0-0.2) Lactic Acid Level 0.6 mmol/L (0.4-2.0) Laboratory Tests Test 10/14/19 11:30 10/14/19 13:00 10/14/19 13:15 10/15/19 04:20 Influenza Type A Antigen Negative (NEGATIVE) Influenza Type B Antigen Negative (NEGATIVE) Sodium Level 141 mmol/L (136-145) 140 mmol/L (136-145) Potassium Level 3.1 mmol/L (3.5-5.1) 3.2 mmol/L (3.5-5.1) Chloride Level 98 mmol/L (98-107) 101 mmol/L (98-107) Carbon Dioxide Level 35 mmol/L (21-32) 33 mmol/L (21-32) Anion Gap 8 (6-14) 6 (6-14) Blood Urea Nitrogen 8 mg/dL (7-20) 10 mg/dL (7-20) Creatinine 0.6 mg/dL (0.6-1.0) 0.5 mg/dL (0.6-1.0) Estimated GFR (Cockcroft-Gault) 103.0 127.2 BUN/Creatinine Ratio 13 (6-20) Glucose Level 110 mg/dL (70-99) 124 mg/dL (70-99) Calcium Level 8.7 mg/dL (8.5-10.1) 8.5 mg/dL (8.5-10.1) Total Bilirubin 0.2 mg/dL (0.2-1.0) Aspartate Amino Transf (AST/SGOT) 19 U/L (15-37) Alanine Aminotransferase (ALT/SGPT) 22 U/L (14-59) Alkaline Phosphatase 92 U/L (46-116) Total Protein 7.6 g/dL (6.4-8.2) Albumin 2.7 g/dL (3.4-5.0) Albumin/Globulin Ratio 0.6 (1.0-1.7) Procalcitonin < 0.10 ng/mL (0.00-0.10) White Blood Count 11.6 x10^3/uL (4.0-11.0) 8.6 x10^3/uL (4.0-11.0) Red Blood Count 4.23 x10^6/uL (3.50-5.40) 4.05 x10^6/uL (3.50-5.40) Hemoglobin 12.7 g/dL (12.0-15.5) 11.9 g/dL (12.0-15.5) Hematocrit 37.6 % (36.0-47.0) 36.3 % (36.0-47.0) Mean Corpuscular Volume 89 fL (79-100) 90 fL (79-100) Mean Corpuscular Hemoglobin 30 pg (25-35) 29 pg (25-35) Mean Corpuscular Hemoglobin Concent 34 g/dL (31-37) 33 g/dL (31-37) Red Cell Distribution Width 15.0 % (11.5-14.5) 14.8 % (11.5-14.5) Platelet Count 497 x10^3/uL (140-400) 476 x10^3/uL (140-400) Neutrophils (%) (Auto) 83 % (31-73) 62 % (31-73) Lymphocytes (%) (Auto) 11 % (24-48) 24 % (24-48) Monocytes (%) (Auto) 5 % (0-9) 14 % (0-9) Eosinophils (%) (Auto) 0 % (0-3) 0 % (0-3) Basophils (%) (Auto) 0 % (0-3) 0 % (0-3) Neutrophils # (Auto) 9.6 x10^3/uL (1.8-7.7) 5.4 x10^3/uL (1.8-7.7) Lymphocytes # (Auto) 1.2 x10^3/uL (1.0-4.8) 2.0 x10^3/uL (1.0-4.8) Monocytes # (Auto) 0.6 x10^3/uL (0.0-1.1) 1.2 x10^3/uL (0.0-1.1) Eosinophils # (Auto) 0.0 x10^3/uL (0.0-0.7) 0.0 x10^3/uL (0.0-0.7) Basophils # (Auto) 0.0 x10^3/uL (0.0-0.2) 0.0 x10^3/uL (0.0-0.2) Lactic Acid Level 0.6 mmol/L (0.4-2.0) Medications Current Medications Albuterol/ Ipratropium (Duoneb) 3 ml 1X ONCE NEB Last administered on 10/14/19at 11:29; Start 10/14/19 at 11:30; Stop 10/14/19 at 11:31; Status DC Prednisone (Prednisone) 60 mg 1X ONCE PO Last administered on 10/14/19at 11:26; Start 10/14/19 at 11:30; Stop 10/14/19 at 11:31; Status DC Benzonatate (Tessalon Perle) 100 mg 1X ONCE PO Last administered on 10/14/19at 11:26; Start 10/14/19 at 11:30; Stop 10/14/19 at 11:31; Status DC Albuterol/ Ipratropium (Duoneb) 3 ml 1X ONCE NEB Last administered on 10/14/19at 12:39; Start 10/14/19 at 12:30; Stop 10/14/19 at 12:31; Status DC Albuterol Sulfate (Ventolin Neb Soln) 10 mg 1X ONCE CONT NEB Last administered on 10/14/19at 12:39; Start 10/14/19 at 12:30; Stop 10/14/19 at 12:31; Status DC Ceftriaxone Sodium (Rocephin) 1 gm 1X ONCE IVP Last administered on 10/14/19at 13:25; Start 10/14/19 at 13:00; Stop 10/14/19 at 13:01; Status DC Azithromycin 250 ml @ 250 mls/hr 1X ONCE IV Last administered on 10/14/19at 13:24; Start 10/14/19 at 13:00; Stop 10/14/19 at 13:59; Status DC Potassium Chloride (Klor-Con) 40 meq 1X ONCE PO Last administered on 10/14/19at 14:30; Start 10/14/19 at 13:30; Stop 10/14/19 at 13:31; Status DC Ondansetron HCl (Zofran) 4 mg PRN Q8HRS PRN IV NAUSEA/VOMITING; Start 10/14/19 at 14:30; Stop 10/15/19 at 14:29 Acetaminophen (Tylenol) 650 mg PRN Q4HRS PRN PO FEVER Last administered on 10/14/19at 14:52; Start 10/14/19 at 14:30; Stop 10/15/19 at 14:29 Albuterol/ Ipratropium (Duoneb) 3 ml RTQID NEB ; Start 10/14/19 at 16:00; Stop 10/14/19 at 15:07; Status DC Ondansetron HCl (Zofran) 4 mg PRN Q4HRS PRN IV NAUSEA/VOMITING; Start 10/14/19 at 15:15 Zolpidem Tartrate (Ambien) 5 mg PRN QHS PRN PO INSOMNIA; Start 10/14/19 at 15:15 Acetaminophen (Tylenol) 650 mg PRN Q4HRS PRN PO TEMP OVER 100.4F OR MILD PAIN; Start 10/14/19 at 15:15 Docusate Sodium (Colace) 100 mg PRN BID PRN PO CONSTIPATION; Start 10/14/19 at 15:15 Albuterol Sulfate (Ventolin Neb Soln) 2.5 mg PRN Q4HRS PRN NEB SHORTNESS OF BREATH; Start 10/14/19 at 15:15 Albuterol/ Ipratropium (Duoneb) 3 ml Q4HRS NEB Last administered on 10/15/19at 08:18; Start 10/14/19 at 16:00 Guaifenesin (Robitussin) 200 mg PRN Q4HRS PRN PO COUGH; Start 10/14/19 at 15:15; Stop 10/14/19 at 15:17; Status DC Lorazepam (Ativan) 0.5 mg PRN Q4HRS PRN PO ANXIETY / AGITATION Last adminis tered on 10/15/19at 06:33; Start 10/14/19 at 15:15 Ceftriaxone Sodium (Rocephin) 1 gm Q24H IVP ; Start 10/15/19 at 14:00 Azithromycin 500 mg/Sodium Chloride 250 ml @ 250 mls/hr Q24H IV ; Start 10/15/19 at 13:00; Stop 10/17/19 at 12:59 Amlodipine Besylate (Norvasc) 5 mg DAILY PO Last administered on 10/15/19at 08:45; Start 10/15/19 at 09:00 Atorvastatin Calcium (Lipitor) 40 mg QHS PO Last administered on 10/14/19 21:16; Start 10/14/19 at 21:00 Docusate Sodium (Colace) 100 mg BID PO Last administered on 10/15/19 08:44; Start 10/14/19 at 21:00 Losartan Potassium (Cozaar) 50 mg DAILY PO Last administered on 10/15/19 08:44; Start 10/15/19 at 09:00 Montelukast Sodium (Singulair) 10 mg QHS PO Last administered on 10/14/19 21:16; Start 10/14/19 at 21:00 Oxycodone/ Acetaminophen (Percocet 5/325) 1 tab PRN QID PRN PO PAIN Last administered on 10/15/19 10:11; Start 10/14/19 at 15:15 Pantoprazole Sodium (Protonix) 40 mg DAILYAC PO Last administered on 10/15/19 06:33; Start 10/15/19 at 07:30 Enoxaparin Sodium (Lovenox 40mg Syringe) 40 mg Q24H SQ Last administered on 10/14/19 16:37; Start 10/14/19 at 16:00 Guaifenesin (Mucinex) 600 mg BID PO Last administered on 10/15/19 08:45; Start 10/14/19 at 16:00 Guaifenesin (Robitussin) 200 mg PRN Q4HRS PRN PO COUGH; Start 10/14/19 at 15:15 Cetirizine HCl (ZyrTEC) 10 mg DAILY PO Last administered on 10/15/19 08:44; Start 10/15/19 at 09:00 Non-Formulary Medication (Alendronate Sodium ) 70 mg Q2WKS PO ; Start 10/28/19 at 09:00; Status UNV Zolpidem Tartrate (Ambien) 5 mg QHS PO Last administered on 10/14/19 21:16; Start 10/14/19 at 21:00 Non-Formulary Medication 1 ea BID NEB Last administered on 10/15/19 08:46; Start 10/14/19 at 21:00 Potassium Chloride (Klor-Con) 40 meq Q2H PO Last administered on 2/23/20at 09:58; Start 10/15/19 at 08:00; Stop 10/15/19 at 10:01; Status DC Acetylcysteine (Mucomyst 20% Resp Treatment) 600 mg BID NEB ; Start 10/15/19 at 09:00 Albuterol Sulfate (Ventolin Neb Soln) 2.5 mg BID NEB ; Start 10/15/19 at 09:00 Sodium Chloride 1,000 ml @ 100 mls/hr Q10H IV Last administered on 10/15/19at 09:57; Start 10/15/19 at 09:15 Prednisone (Prednisone) 40 mg DAILY PO ; Start 10/16/19 at 09:00 Active Scripts Active Reported Symbicort 160-4.5 Mcg Inhaler (Budesonide/Formoterol Fumarate) 10.2 Gm Hfa.aer.ad 2 Puff IH BID Symbicort 160-4.5 Mcg Inhaler (Budesonide/Formoterol Fumarate) 10.2 Gm Hfa.aer. ad 2 Puff IH BID Alendronate Sodium 70 Mg Tablet 70 Mg PO Q2WKS Cetirizine Hcl 10 Mg Tablet 10 Mg PO DAILY Percocet 5-325 Mg Tablet (Oxycodone/Acetaminophen) 1 Each Tablet 1 Tab PO QID PRN Colace (Docusate Sodium) 100 Mg Capsule 1 Cap PO BID Ambien (Zolpidem Tartrate) 10 Mg Tablet 1 Tab PO QHS Montelukast Sodium Tablet (Montelukast Sodium) 10 Mg Tablet 1 Tab PO DAILY Losartan Potassium 50 Mg Tablet 50 Mg PO DAILY Amlodipine Besylate 5 Mg Tablet 5 Mg PO DAILY Soma (Carisoprodol) 350 Mg Tablet 350 Mg PO Lipitor (Atorvastatin Calcium) 40 Mg Tablet 40 Mg PO Omeprazole 20 Mg Capsule.dr 20 Mg PO 1X Vitals/I & O Vital Sign - Last 24 Hours 10/14/19 10/14/19 10/14/19 10/14/19 11:20 11:33 12:15 12:44 Temp 98.5 98.5 Pulse 92 82 Resp 24 B/P (MAP) 138/60 (86) 145/67 (93) Pulse Ox 90 91 92 91 O2 Delivery Nasal Cannula Nasal Cannula Nasal Cannula Nasal Cannula O2 Flow Rate 4.0 3.0 4.0 3.0 10/14/19 10/14/19 10/14/1910/14/20 13:15 14:00 14:15 15:00 Temp 97.5 97.5 Pulse 90 100 103 Resp 18 B/P (MAP) 145/65 (91) 123/102 (109) 127/71 (89) Pulse Ox 93 91 88 O2 Delivery Nasal Cannula Nasal Cannula Nasal Cannula Nasal Cannula O2 Flow Rate 4.0 5.0 4.0 5.0 10/14/19 10/14/19 10/14/19 10/14/19 17:11 18:22 19:00 19:22 Temp 98.6 98.6 Pulse 91 Resp 18 B/P (MAP) 120/62 (81) Pulse Ox 91 90 92 O2 Delivery Nasal Cannula Nasal Cannula Nasal Cannula Nasal Cannula O2 Flow Rate 5.0 5.0 5.0 10/14/19 10/14/19 10/14/19 10/15/19 19:49 19:55 23:00 00:18 Temp 98.9 98.9 Pulse 87 Resp 18 B/P (MAP) 132/61 (84) Pulse Ox 92 95 92 O2 Delivery Nasal Cannula Nasal Cannula Nasal Cannula O2 Flow Rate 5.0 5.0 5.0 10/15/19 10/15/19 10/15/19 10/15/19 03:00 03:32 04:11 04:32 Temp 98.5 98.5 Pulse 80 Resp 16 B/P (MAP) 126/52 (76) Pulse Ox 94 92 92 O2 Delivery Nasal Cannula Nasal Cannula Nasal Cannula O2 Flow Rate 5.0 5.0 5.0 10/15/19 10/15/19 10/15/19 10/15/19 07:00 08:00 08:21 08:44 Temp 98.6 98.6 Pulse 83 83 Resp 18 B/P (MAP) 131/66 (87) 131/66 Pulse Ox 92 92 O2 Delivery Nasal Cannula Nasal Cannula Nasal Cannula O2 Flow Rate 5.0 5.0 5.0 10/15/19 10/15/19 08:45 10:11 Pulse 83 B/P (MAP) 131/66 O2 Delivery Nasal Cannula Intake and Output 10/14/19 10/14/19 10/15/19 15:00 23:00 07:00 Intake Total 490 ml 600 ml Output Total 400 ml Balance 90 ml 600 ml HERMELINDO FLORES MD Oct 15, 2019 10:51
[2019-10-15 11:00] VITALS: BP 138/66
[2019-10-15] MEDS: ACETYLCYSTEINE 20% for RESP TX 600 MG/3 ML. NEB SCH ×2 (12:56→21:00)
[2019-10-15] MEDS: cefTRIAXone IV Push 1 GM VIAL. IVP SCH (13:49)
[2019-10-15] MEDS: AZITHROMYCIN 500 MG in IV NORMAL SALINE 250ML 250 ML IV SCH (13:50)
[2019-10-15 14:50] VITALS: BP 129/54
[2019-10-15] MEDS: ENOXAPARIN 40 MG/0.4 ML SYRINGE. SQ SCH (15:28)
[2019-10-15] MEDS ORDERED: ASPI1POW PO (17:47)
[2019-10-15] MEDS ORDERED: ERGO2000 PO (17:47)
[2019-10-15] MEDS ORDERED: ASA/APAP/CAFFEINE 250/250/65MG TABLET. PO PRN (18:15)
[2019-10-15 19:00] VITALS: BP 134/60
[2019-10-15] MEDS: ALBUTEROL SULFATE 2.5 MG/3 ML NEBU. NEB SCH (19:57)
[2019-10-15] MEDS: MONTELUKAST SODIUM 10 MG TABLET. PO SCH (20:40)
[2019-10-15] MEDS: ZOLPIDEM 5 MG TABLET. PO SCH (20:40)
[2019-10-15] MEDS: LACTOBACILLUS RHAMNOSUS GG 1 CAPSULE. PO SCH (20:40)
[2019-10-15] MEDS: ATORVASTATIN CALCIUM 40 MG TABLET. PO SCH (20:41)
[2019-10-15] MEDS: SPIRIVA RESPIMAT INH SCH (20:53)
[2019-10-15 22:37] VITALS: BP 136/68
--- NOTE | 2019-10-16 01:10 | NUR ---
NURSING NOTE Pt awoke c/o SOA. Pt anxious, lungs wheezy. RT called for treatment. Pt O2 sat @ 79% on 3L/NC after getting up to bsc. Pt states she thinks she had a bad dream, but woke up and panicked when she couldn't breathe. Taught pt breathing techniques to help slow breathing and decrease anxiety. Pt very responsive, oxygen level up to 91% on 3L just as RT came in to give treatment. Pt states feeling better after treatment. Will monitor.
[2019-10-16] MEDS: ALBUTEROL SULFATE 2.5 MG/3 ML NEBU. NEB PRN (01:35)
[2019-10-16 03:00] VITALS: BP 136/75
[2019-10-16] MEDS: oxyCODONE/APAP 5/325 1 TAB TABLET PO PRN ×4 (03:33→22:16)
[2019-10-16] MEDS: IV NORMAL SALINE 1000ML BAG 1,000 ML IV SCH ×2 (06:11→15:57)
[2019-10-16 07:00] VITALS: BP 156/82
[2019-10-16] MEDS: ACETYLCYSTEINE 20% for RESP TX 600 MG/3 ML. NEB SCH (07:41)
[2019-10-16] MEDS: ALBUTEROL SULFATE 2.5 MG/3 ML NEBU. NEB SCH ×4 (07:41→19:48)
[2019-10-16] MEDS: SYMBICORT 160/4.5 NEB SCH ×2 (08:03→21:00)
[2019-10-16] MEDS: SPIRIVA RESPIMAT INH SCH ×2 (08:03→21:00)
[2019-10-16] MEDS: LORazepam 0.5 MG TABLET PO PRN ×4 (08:03→22:15)
[2019-10-16] MEDS: LACTOBACILLUS RHAMNOSUS GG 1 CAPSULE. PO SCH ×2 (08:04→21:04)
[2019-10-16] MEDS: LOSARTAN POTASSIUM 50 MG TABLET. PO SCH (08:04)
[2019-10-16] MEDS: DOCUSATE SODIUM 100 MG CAPSULE. PO SCH ×2 (08:04→21:05)
[2019-10-16] MEDS: PANTOPRAZOLE 40 MG TABLET.DR. PO SCH (08:04)
[2019-10-16] MEDS: CETIRIZINE HCL 10 MG TABLET. PO SCH (08:04)
[2019-10-16] MEDS: amLODIPine BESYLATE 5 MG TABLET PO SCH (08:05)
[2019-10-16] MEDS: predniSONE 20 MG TABLET PO SCH (08:05)
[2019-10-16] MEDS: BUDESONIDE 0.5 MG/2 ML NEBU. NEB SCH ×2 (09:40→19:48)
--- NOTE | 2019-10-16 10:16 | PDOC ---
[facility] PROGRESS NOTE Chief Complaint Chief Complaint Bibasilar community-acquired pneumonia History of tobacco abuse greater than [id number] history of smoking COPD currently in acute exacerbation secondary to pneumonic process History of essential hypertension Leukocytosis Hypokalemia History of Present Illness History of Present Illness Still feeling under the weather. The patient doesn't feel like she is making much progress in her cough is getting worse. She is unable to expectorate the secretions since her quite thick. Reassurance has been provided all of her concerns were addressed to the best of my abilities smoking cessation counseling took place again around 10 minutes 10/16/2019 Patient was seen and examined D/W RN She reports that she is currently "In pain" and she normally takes muscle r elaxants and [place] at home Vitals/I&O Vitals/I&O: Vital Signs Date Time Temp Pulse Resp B/P (MAP) Pulse Ox O2 Delivery O2 Flow Rate FiO2 10/16/19 09:44 Nasal Cannula 4.0 10/16/19 08:05 76 156/82 10/16/19 07:42 94 10/16/19 07:00 98.2 18 98.2 I & O 10/15/19 10/15/19 10/16/19 15:00 23:00 07:00 Intake Total 600 ml 1600 ml 1000 ml Balance 600 ml 1600 ml 1000 ml Physical Exam Physical Exam: Gen.: well-developed well-nourished, minimal distress Head: Normal shape atraumatic Eyes: Pupils equal reactive to light and accommodation, normal conjunctivae and lids Ears: Normal shape Nose: Normal shape no trauma Mouth: No exudates of the back of throat no thrush no lesions Neck: Supple no JVD no carotid bruit or lymphadenopathy no thyromegaly Chest: Lungs with coarse breath sounds, expiratory wheezing no increased work of breathing superficial breathing effort Cardiovascular: S1-S2 regular rhythm no murmurs gallops or rubs Abdomen: Bowel sounds present soft nontender no hepatosplenomegaly appreciated sign Extremities: No clubbing no cyanosis no edema peripheral pulses palpated bilaterally Neurological: Alert awake oriented in person time place and situation, cranial nerves II through XII intact, no motor or sensory deficits appreciated Review of Systems Review of Systems: Patient reports back and neck pain. Denies nausea/vomiting Assessment and Plan Assessmemt and Plan Assessment: Bibasilar community-acquired pneumonia History of tobacco abuse greater than [id number] history of smoking COPD currently in acute exacerbation secondary to pneumonic process History of essential hypertension Leukocytosis Hypokalemia Chronic Pain Plan: Continue with current steroids and antibiotics Consult Pulm Review Home Meds Mucomyst for secretion management Ordered new labs PT/OT DVT prophylaxis with Lovenox Smoking cessation counseling Comment Review of Relevant I have reviewed the following items yang (where applicable) has been applied. Medications: Current Medications Medications (Trade) Dose Ordered Sig/Tammi Route PRN Reason Start Time Stop Time Status Last Admin Dose Admin Ceftriaxone Sodium (Rocephin) 1 gm Q24H IVP 10/15/19 14:00 10/15/19 13:49 Azithromycin 500 mg/Sodium Chloride 250 ml @ 250 mls/hr Q24H IV 10/15/19 13:00 10/17/19 12:59 10/15/19 13:50 Prednisone (Prednisone) 40 mg DAILY PO 10/16/19 09:00 10/16/19 08:05 Lactobacillus Rhamnosus (Culturelle) 1 cap BID PO 10/15/19 21:00 10/16/19 08:04 Albuterol Sulfate (Ventolin Neb Soln) 2.5 mg RTBID NEB 10/15/19 20:00 10/16/19 09:10 DC 10/16/19 07:41 Acetaminophen/ Aspirin/Caffeine (Excedrin Migraine) 1 tab PRN Q6HRS PRN PO MIGRAINE HEADACHE 10/15/19 18:15 10/15/19 18:19 Non-Formulary Medication 1 ea BID INH 10/15/19 21:00 10/16/19 08:03 WEST STROUD III DO Oct 16, 2019 10:16
[2019-10-16 10:36] VITALS: BP 142/61
--- NOTE | 2019-10-16 12:36 | CONS ---
DATE OF CONSULTATION: PULMONARY CONSULTATION ATTENDING PHYSICIAN: Zbigniew Asif MD REASON FOR CONSULTATION: Dyspnea. HISTORY OF PRESENT ILLNESS: The patient is a 58-year-old who has been a smoker for 35-40 years. She came into the hospital with complaint of shortness of breath. She has been wheezing. She has been sick for 4 weeks. She has a cough and felt like she had cold symptoms. She has some sinus congestion as well. She tried joos-plx-kgseivo medications without any improvement. Her saturations were in the mid 80s on arrival. She is currently on 4 liters of oxygen. No headaches, no nausea, vomiting or diarrhea. No chest pain. No focal weakness. Her chest x-ray did not reveal any definite infiltrates. PAST MEDICAL HISTORY: Significant for hypertension and COPD with ongoing tobaccoism. PAST SURGICAL HISTORY: No recent surgeries. ALLERGIES: NONSTEROIDALS AND MORPHINE. CURRENT MEDICATIONS: Reviewed as listed in the [facility] including bronchodilators and antibiotics. REVIEW OF SYSTEMS: Twelve-point system obtained. Pertinent positives discussed in my present illness, otherwise noncontributory. All systems that were negative were reviewed as well. SOCIAL HISTORY: Smoker for about 35-40 years. Still smokes. FAMILY HISTORY: Noncontributory to lungs. PHYSICAL EXAMINATION: VITAL SIGNS: Reviewed, pulse ox 93% on 4 liters. NECK: Supple. LUNGS: With diminished breath sounds bilaterally with occasional wheezes. CARDIOVASCULAR: With a regular rate. ABDOMEN: Soft, obese. EXTREMITIES: With no pitting edema. LABORATORY DATA: Reviewed. Influenza screen is negative. BUN and creatinine 10 and 0.5. White cell count is 11.6. IMPRESSION: 1. Acute hypoxic respiratory failure secondary to acute exacerbation of chronic obstructive pulmonary disease and acute bronchitis. 2. A 35-40 years of tobacco use, suspect underlying chronic obstructive pulmonary disease. 3. Mild leukocytosis on admission, improved now. RECOMMENDATIONS: 1. Continue with present oxygen with gradual wean to keep saturation 92-94%. 2. Continue present antibiotic. 3. Continue DuoNeb. 4. Prednisone with taper. 5. Smoking cessation counseling provided. 6. PFTs as an outpatient. 7. Lovenox for DVT prophylaxis. 8. Discussed with RN along. AMBER BROWN MD DR: TONY/leonardo JOB#: [id number] / [id number]
[2019-10-16] MEDS: AZITHROMYCIN 500 MG in IV NORMAL SALINE 250ML 250 ML IV SCH (12:44)
[2019-10-16] MEDS: cefTRIAXone IV Push 1 GM VIAL. IVP SCH (14:04)
[2019-10-16 15:00] VITALS: BP 148/72
[2019-10-16] MEDS: ENOXAPARIN 40 MG/0.4 ML SYRINGE. SQ SCH (15:57)
[2019-10-16 19:00] VITALS: BP_SYST 118; BP_SYST 166; BP_DIAS 67; BP_DIAS 79
[2019-10-16] MEDS: MONTELUKAST SODIUM 10 MG TABLET. PO SCH (21:04)
[2019-10-16] MEDS: ATORVASTATIN CALCIUM 40 MG TABLET. PO SCH (21:05)
[2019-10-16] MEDS: ZOLPIDEM 5 MG TABLET. PO SCH (21:05)
[2019-10-16 23:00] VITALS: BP 141/72
[2019-10-17] MEDS: ALBUTEROL SULFATE 2.5 MG/3 ML NEBU. NEB PRN (01:47)
[2019-10-17] MEDS: LORazepam 0.5 MG TABLET PO PRN ×4 (02:32→15:41)
[2019-10-17] MEDS: IV NORMAL SALINE 1000ML BAG 1,000 ML IV SCH ×3 (02:33→22:12)
[2019-10-17 03:00] VITALS: BP 113/62
[2019-10-17] MEDS: oxyCODONE/APAP 5/325 1 TAB TABLET PO PRN ×3 (04:33→20:27)
[2019-10-17 07:00] VITALS: BP 163/80
[2019-10-17] MEDS: ALBUTEROL SULFATE 2.5 MG/3 ML NEBU. NEB SCH ×4 (07:57→20:01)
[2019-10-17] MEDS: BUDESONIDE 0.5 MG/2 ML NEBU. NEB SCH ×2 (07:57→20:01)
[2019-10-17] MEDS: LACTOBACILLUS RHAMNOSUS GG 1 CAPSULE. PO SCH ×2 (08:46→20:27)
[2019-10-17] MEDS: amLODIPine BESYLATE 5 MG TABLET PO SCH (08:47)
[2019-10-17] MEDS: predniSONE 20 MG TABLET PO SCH (08:47)
[2019-10-17] MEDS: CETIRIZINE HCL 10 MG TABLET. PO SCH (08:47)
[2019-10-17] MEDS: CEFDINIR 300 MG CAPSULE PO SCH ×2 (08:47→20:27)
[2019-10-17] MEDS: DOCUSATE SODIUM 100 MG CAPSULE. PO SCH ×2 (08:47→20:28)
[2019-10-17] MEDS: PANTOPRAZOLE 40 MG TABLET.DR. PO SCH (08:47)
[2019-10-17] MEDS: LOSARTAN POTASSIUM 50 MG TABLET. PO SCH (08:47)
[2019-10-17] MEDS: SYMBICORT 160/4.5 NEB SCH ×2 (09:00→20:32)
[2019-10-17] MEDS ORDERED: AZITHROMYCIN 250 MG TABLET. PO SCH (09:00)
[2019-10-17] MEDS: SPIRIVA RESPIMAT INH SCH ×2 (09:00→20:32)
--- NOTE | 2019-10-17 09:04 | PDOC ---
PULMONARY PROGRESS NOTES Subjective PT THIS AM SOA WITH MINIMAL EXERTION NOT ABLE TO SIT IN CHAIR Vitals Vital Signs Date Time Temp Pulse Resp B/P (MAP) Pulse Ox O2 Delivery O2 Flow Rate FiO2 10/17/19 08:47 82 163/80 10/17/19 07:59 92 Nasal Cannula 4.0 10/17/19 07:00 98.4 18 98.4 ROS: No Nausea, No Chest Pain, No Abdominal Pain, No Increase Cough General: Alert Lungs: Clear Cardiovascular: S1, S2 Abdomen: Soft Neuro Exam: Alert Extremities: No Edema Skin: Warm Medications Active Scripts Medications Dose Route/Sig Max Daily Dose Days Date Category Ja Aspirin Powder Pouches (Aspirin/Caffeine) 1 Each Powd.pack 1 Each PO PRN Q6HRS PRN 10/15/19 Reported Vitamin D2 (Ergocalciferol (Vitamin D2)) 2,000 Unit Tablet 5,000 Unit PO WEEKLY 10/15/19 Reported Symbicort 160-4.5 Mcg Inhaler (Budesonide/Formoterol Fumarate) 10.2 Gm Hfa.aer.ad 2 Puff IH BID 10/14/19 Reported Symbicort 160-4.5 Mcg Inhaler (Budesonide/Formoterol Fumarate) 10.2 Gm Hfa.aer.ad 2 Puff IH BID 10/14/19 Reported Alendronate Sodium 70 Mg Tablet 70 Mg PO Q2WKS 10/14/19 Reported Cetirizine Hcl 10 Mg Tablet 10 Mg PO DAILY 10/14/19 Reported Percocet 5-325 Mg Tablet (Oxycodone/Acetaminophen) 1 Each Tablet 1 Tab PO QID PRN 04/05/18 Reported Colace (Docusate Sodium) 100 Mg Capsule 1 Cap PO BID 04/05/18 Reported Ambien (Zolpidem Tartrate) 10 Mg Tablet 1 Tab PO QHS 04/05/18 Reported Montelukast Sodium Tablet (Montelukast Sodium) 10 Mg Tablet 1 Tab PO DAILY 04/05/18 Reported Losartan Potassium 50 Mg Tablet 50 Mg PO DAILY 04/05/18 Reported Amlodipine Besylate 5 Mg Tablet 5 Mg PO DAILY 04/05/18 Reported Soma (Carisoprodol) 350 Mg Tablet 350 Mg PO 08/18/13 Reported Lipitor (Atorvastatin Calcium) 40 Mg Tablet 40 Mg PO 08/18/13 Reported Omeprazole 20 Mg Capsule.dr 20 Mg PO 1X 08/18/13 Reported Impression . IMPRESSION: 1. Acute hypoxic respiratory failure secondary to acute exacerbation of chronic obstructive pulmonary disease and acute bronchitis. 2. A 35-40 years of tobacco use, suspect underlying chronic obstructive pulmonary disease. 3. Mild leukocytosis on admission, improved now. Plan . NEEDS MORE TIME TO IMPROVE PT COULD NOT SIT IN CHAIR VERY SOA USING ACCESSORY MUSCLE TO BREATH 1. Continue with present oxygen with gradual wean to keep saturation 92-94%. 2. Continue present antibiotic. 3. Continue DuoNeb. 4. Prednisone with taper. 5. Smoking cessation counseling provided. 6. PFTs as an outpatient. 7. Lovenox for DVT prophylaxis. 8. Discussed with RN along. JULIO DUMAS MD Oct 17, 2019 09:03
[2019-10-17 10:40] VITALS: BP 163/63
--- NOTE | 2019-10-17 11:57 | NUR ---
SS following for discharge planning. SS reviewed pt chart. Pt is from home with spouse and is currently requiring oxygen. PT recommended assisted unit. community planner, Carlee Cuello, meeting with pt to discuss assisted unit. SS will continue to follow for discharge planning.
--- NOTE | 2019-10-17 12:39 | PDOC ---
[facility] PROGRESS NOTE Chief Complaint Chief Complaint Community-acquired pneumonia, Bibasilar History of tobacco abuse greater than [id number] history of smoking Acute Hypoxic Respiratory Failure COPD exacerbation with Acute Bronchitis Leukocytosis on admission, improved Hypertension Hypokalemia Chronic Pain History of Present Illness History of Present Illness Still feeling under the weather. The patient doesn't feel like she is making much progress in her cough is getting worse. She is unable to expectorate the secretions since her quite thick. Reassurance has been provided all of her concerns were addressed to the best of my abilities smoking cessation counseling took place again around 10 minutes 10/16/2019 Patient was seen and examined D/W RN She reports that she is currently "In pain" and she normally takes muscle relaxants and [place] at home 10/17/2019 -Patient seen and examined. -Chart reviewed and care discussed with nursing staff. -Pt laying comfortably in bed, NAD. No new complaints or issues at this time. Will monitor. Vitals/I&O Vitals/I&O: Vital Signs Date Time Temp Pulse Resp B/P (MAP) Pulse Ox O2 Delivery O2 Flow Rate FiO2 10/17/19 11:03 94 Nasal Cannula 4.0 10/17/19 10:50 21 10/17/19 10:40 98.2 79 163/63 (96) 98.2 I & O 10/16/19 10/16/19 10/17/19 15:00 23:00 07:00 Intake Total 660 ml 760 ml 1350 ml Balance 660 ml 760 ml 1350 ml Physical Exam General: Alert, Oriented X3, No acute distress Heart: Regular rate, No murmurs Lungs: Wheezing Abdomen: Normal bowel sounds, No tenderness Extremities: No clubbing, No cyanosis Review of Systems Review of Systems: Denies chest pain Reports SOA Assessment and Plan Assessmemt and Plan Problems Medical Problems: (1) Bilateral pulmonary infiltrates on chest x-ray Status: Acute (2) COPD exacerbation Status: Acute (3) Hypoxia Status: Acute (4) Smoking addiction Status: Acute Assessment: Community-acquired pneumonia, Bibasilar History of tobacco abuse greater than [id number] history of smoking Acute Hypoxic Respiratory Failure COPD exacerbation with Acute Bronchitis Leukocytosis on admission, improved Hypertension Hypokalemia Chronic Pain Plan: -Potassium 40meq PO X1, will recheck potassium -Continue supplemental O2, Steroids, and DuoNeb -Continue IV ABX (ceftriaxone & Azithromycin) -Pulmonology following -Trend labs -PT/OT -DVT ppx: Lovenox -Smoking cessation counseling -Full code Comment Review of Relevant I have reviewed the following items yang (where applicable) has been applied. Medications: Current Medications Medications (Trade) Dose Ordered Sig/Tammi Route PRN Reason Start Time Stop Time Status Last Admin Dose Admin Azithromycin (Zithromax) 250 mg DAILY PO 10/17/19 09:00 10/18/19 08:59 10/17/19 08:47 Cefdinir (Omnicef) 300 mg BID PO 10/17/19 09:00 10/17/19 08:47 WEST STROUD III DO Oct 17, 2019 12:39
[2019-10-17] MEDS ORDERED: POTASSIUM CHLORIDE 20 MEQ TABLET.ER. PO ONE (13:00)
[2019-10-17 15:00] VITALS: BP 168/60
[2019-10-17] MEDS: ENOXAPARIN 40 MG/0.4 ML SYRINGE. SQ SCH (15:37)
[2019-10-17 19:00] VITALS: BP 163/75
[2019-10-17] MEDS: ATORVASTATIN CALCIUM 40 MG TABLET. PO SCH (20:27)
[2019-10-17] MEDS: ZOLPIDEM 5 MG TABLET. PO SCH (20:27)
[2019-10-17] MEDS: MONTELUKAST SODIUM 10 MG TABLET. PO SCH (20:27)
[2019-10-17 23:00] VITALS: BP 157/74
[2019-10-18] MEDS: oxyCODONE/APAP 5/325 1 TAB TABLET PO PRN ×4 (02:04→21:01)
[2019-10-18 03:00] VITALS: BP 161/67
[2019-10-18] MEDS: LORazepam 0.5 MG TABLET PO PRN ×3 (04:12→18:08)
[2019-10-18 04:39] LABS: BASO % 0 % (0-3); EOS % 0 % (0-3); HEMATOCRIT 35.3 % (36.0-47.0); HEMOGLOBIN 11.6 g/dL (12.0-15.5); LYMPH # 2.7 x10^3/uL (1.0-4.8); LYMPH % 34 % (24-48); MEAN CORPUSCULAR HEMOGLOBIN 30 pg (25-35); MEAN CORPUSCULAR HGB CONC 33 g/dL (31-37); MEAN CORPUSCULAR VOLUME 90 fL (79-100); MONO # 1.1 x10^3/uL (0.0-1.1); MONO % 14 % (0-9); NEUT # 4.2 x10^3/uL (1.8-7.7); NEUT % 52 % (31-73); PLATELET COUNT 534 x10^3/uL (140-400); RED BLOOD COUNT 3.92 x10^6/uL (3.50-5.40); RED CELL DISTRIBUTION WIDTH 15.4 % (11.5-14.5)
[2019-10-18 04:47] LABS: CALCIUM 8.7 mg/dL (8.5-10.1); CREATININE 0.5 mg/dL (0.6-1.0); GFR 127.2; POTASSIUM 4.1 mmol/L (3.5-5.1)
[2019-10-18 07:00] VITALS: BP 160/63
[2019-10-18] MEDS: BUDESONIDE 0.5 MG/2 ML NEBU. NEB SCH ×2 (07:09→19:16)
[2019-10-18] MEDS: ALBUTEROL SULFATE 2.5 MG/3 ML NEBU. NEB SCH ×4 (07:09→19:16)
[2019-10-18] MEDS: SPIRIVA RESPIMAT INH SCH ×2 (09:00→21:00)
[2019-10-18] MEDS: SYMBICORT 160/4.5 NEB SCH ×2 (09:00→21:00)
[2019-10-18] MEDS: CEFDINIR 300 MG CAPSULE PO SCH ×2 (09:25→21:00)
[2019-10-18] MEDS: PANTOPRAZOLE 40 MG TABLET.DR. PO SCH (09:25)
[2019-10-18] MEDS: CETIRIZINE HCL 10 MG TABLET. PO SCH (09:25)
[2019-10-18] MEDS: DOCUSATE SODIUM 100 MG CAPSULE. PO SCH ×2 (09:25→21:00)
[2019-10-18] MEDS: LACTOBACILLUS RHAMNOSUS GG 1 CAPSULE. PO SCH ×2 (09:25→21:01)
[2019-10-18] MEDS: amLODIPine BESYLATE 5 MG TABLET PO SCH (09:25)
[2019-10-18] MEDS: predniSONE 20 MG TABLET PO SCH (09:26)
[2019-10-18] MEDS: LOSARTAN POTASSIUM 50 MG TABLET. PO SCH (09:26)
[2019-10-18] MEDS: IV NORMAL SALINE 1000ML BAG 1,000 ML IV SCH ×2 (09:26→18:09)
--- NOTE | 2019-10-18 10:18 | PDOC2 ---
MATTIE BRIGHT K 9 HANDLER/ DEPUTY 10/18/19 1018: CARDIAC CONSULT DATE OF CONSULT Date of Consult DATE: 10/18/19 TIME: 10:13 REASON FOR CONSULT Reason for Consult: Chest pain REFERRING PHYSICIAN Referring Physician: Nahid SOURCE Source: Chart review, Patient HISTORY OF PRESENT ILLNESS HISTORY OF PRESENT ILLNESS This is a pleasant 58 yo female admitted for complains of shortness of breath. Further assessment revealed AECOPD and continue to smoke tobacco. Reports no recent falls but has some episodes of dizziness. In the last 1-2 weeks she has been having nonproductive cough and occasional chills. She has been sleeping more and has been having throbbing PIERSON from forehead both sides to her neck region. No focal neurosymptoms. Chest pain is described as mid tightness nonradiating. No n/v. Denies any palpitations. No hx of CAD, VTE, arrhythmias. PAST MEDICAL HISTORY Cardiovascular: HTN, Hyperlipidemia Pulmonary: COPD GI: GERD Musculoskeletal: low back pain, Osteoarthritis ENT: Allergic Rhinitis Endocrine: Osteoporosis PAST SURGICAL HISTORY Past Surgical History: Appendectomy, Tubal Ligation, Hysterectomy SOCIAL HISTORY Smoke: <1 pack per day ALCOHOL: none Drugs: None Lives: with Family CURRENT MEDICATIONS CURRENT MEDICATIONS Current Medications Medications (Trade) Dose Ordered Sig/Tammi Route PRN Reason Start Time Stop Time Status Last Admin Dose Admin Potassium Chloride (Klor-Con) 40 meq 1X ONCE PO 10/17/19 13:00 10/17/19 13:01 DC 10/17/19 12:41 ALLERGIES ALLERGIES: Coded Allergies: morphine (Verified Allergy, Intermediate, blisters, 04/05/18) NSAIDS (Non-Steroidal Anti-Inflamma (Verified Adverse Reaction, Inte rmediate, CAUSES STOMACH IRRITATION, 10/17/19) ROS Review of System 14 point ROS evaluated with pertinent positives noted per HPI PHYSICAL EXAM General: Alert, Oriented X3, Cooperative, No acute distress HEENT: Atraumatic, Mucous membr. moist/pink Lungs: Other (diminished with faint upper wheeze) Heart: Regular rate (SR), Other (distant heart sounds) Abdomen: Soft, No tenderness, Other (obese) Extremities: No cyanosis, Other (2+ bilateral LE pitting edema) Skin: No breakdown, No significant lesion Neuro: Normal speech, Sensation intact Psych/Mental Status: Mental status NL, Mood NL MUSCULOSKELETAL: Osteoarthritic changes both hands VITALS/I&O VITALS/I&O: Vital Signs Date Time Temp Pulse Resp B/P (MAP) Pulse Ox O2 Delivery O2 Flow Rate FiO2 10/18/19 09:26 79 160/63 10/18/19 09:25 Nasal Cannula 4.0 10/18/19 07:10 91 10/18/19 07:00 97.6 18 97.6 l I & O 10/17/19 10/17/19 10/18/19 15:00 23:00 07:00 Intake Total 600 ml 1300 ml 250 ml Output Total 600 ml 850 ml Balance 600 ml 700 ml -600 ml LABS Lab: Laboratory Tests Test 10/18/19 04:10 White Blood Count 8.0 x10^3/uL (4.0-11.0) Red Blood Count 3.92 x10^6/uL (3.50-5.40) Hemoglobin 11.6 g/dL (12.0-15.5) L Hematocrit 35.3 % (36.0-47.0) L Mean Corpuscular Volume 90 fL (79-100) Mean Corpuscular Hemoglobin 30 pg (25-35) Mean Corpuscular Hemoglobin Concent 33 g/dL (31-37) Red Cell Distribution Width 15.4 % (11.5-14.5) H Platelet Count 534 x10^3/uL (140-400) H Neutrophils (%) (Auto) 52 % (31-73) Lymphocytes (%) (Auto) 34 % (24-48) Monocytes (%) (Auto) 14 % (0-9) H Eosinophils (%) (Auto) 0 % (0-3) Basophils (%) (Auto) 0 % (0-3) Neutrophils # (Auto) 4.2 x10^3/uL (1.8-7.7) Lymphocytes # (Auto) 2.7 x10^3/uL (1.0-4.8) Monocytes # (Auto) 1.1 x10^3/uL (0.0-1.1) Eosinophils # (Auto) 0.0 x10^3/uL (0.0-0.7) Basophils # (Auto) 0.0 x10^3/uL (0.0-0.2) Sodium Level 144 mmol/L (136-145) Potassium Level 4.1 mmol/L (3.5-5.1) Chloride Level 105 mmol/L (98-107) Carbon Dioxide Level 34 mmol/L (21-32) H Anion Gap 5 (6-14) L Blood Urea Nitrogen 8 mg/dL (7-20) Creatinine 0.5 mg/dL (0.6-1.0) L Estimated GFR (Cockcroft-Gault) 127.2 Glucose Level 102 mg/dL (70-99) H Calcium Level 8.7 mg/dL (8.5-10.1) Laboratory Tests 10/18/19 04:10 Laboratory Tests 10/18/19 04:10 ECHOCARDIOGRAM ECHOCARDIOGRAM 01/26/2018 [facility] Echocardiographic Findings Left Ventricle Normal size, wall thickness and mass. Normal ejection fraction. Normal left ventricular diastolic function. Right Ventricle Normal size, wall thickness, ejection fraction and septal motion. Left Atrium Normal size. Right Atrium Normal size. IVC/SVC Normal central venous pressure (0-5 mm Hg). Mitral Valve Normal valve structure. No stenosis. Mild regurgitation. Tricuspid Valve Normal valve structure. No stenosis. No regurgitation. Aortic Valve Normal valve structure. No stenosis. No regurgitation. Pulmonary Trace regurgitation. Aorta Normal aorta. Pericardium No pericardial effusion. STRESS TEST STRESS TEST FINDINGS: [facility] 01/26/2018 Pharmacological Stress Electrocardiogram: The patient's resting heart rate was 73 bpm and the resting blood pressure was 120/60. The patients peak stress heart rate was 113 bpm and the peak stress blood pressure was 110/50. The patient experienced shortness of breath following regadenoson infusion. Her symptoms did resolve after receiving 50 mg IV aminophylline. The resting ECG shows Normal sinus rhythm. Following Regadenoson infusion there are no new diagnostic ECG changes. Conclusion: Pharmacologic stress ECG is negative for ischemia. Lgubkixdj-dc-Urhbpylpeu Count Ratio: 0.34 (normal = or < 0.52). Scintigraphic Findings: Planar images reveal the left ventricular cavity is normal in size. There is normal pulmonary tracer uptake. There is a mild degree of breast attenuation present. No transient ischemic dilation is present. Tomographic images were reconstructed in three orthogonal views. There is evidence of probable shifting soft tissue attenuation. On the stress and rest upright data sets, there is a reduction in her images counts in the apical anterior and true LV apical segments. There is normal homogenous uptake of thallium in all myocardial segments on stress supine images. There are no definite perfusion defects. All myocardial segments appear viable. Polar coordinate map identifies no consistent perfusion abnormalities. TID Ratio: 1.01 (normal <1.36). Summed Stress Score: 1 , Summed Rest Score: 0 Regional Wall Thickening and Motion Post Stress: There is normal left ventricular wall motion and thickening of all myocardial segments. Left Ventricular Ejection Fraction = 69 %. Left Ventricular End Diastolic Volume: 67 mL SUMMARY/OPINION: This study is normal with no evidence of significant myocardial ischemia. There is evidence of probable shifting soft tissue attenuation, as described in detail above. There is normal wall motion and thickening in all myocardial segments. The overall left ventricular systolic function is normal. There are no high risk prognostic indicators present. The ECG portion of the study is negative for ischemia. Comparison is made with a prior [facility] study completed 03/30/13. Ejection fraction was 55% with an end-diastolic volume of 81 mL's. There was breast tissue attenuation noted on the prior study as well. There were no definitive perfusion abnormalities. Comparing the 2 studies qualitatively, there is been no significant interval changes. In aggregate the current study is low risk in regards to predicted annual cardiovascular mortality rate. HEART CATH HEART CATH [facility] FINDINGS: LEFT HEART CATHETERIZATION: LV systolic pressure 140, EDP of 10 mmHg. There was no gradient across the aortic valve. SELECTIVE CORONARY ANGIOGRAPHY: LEFT MAIN ARTERY: Left main artery is a large caliber vessel. It arises normally from left coronary sinus. It is free of any significant disease. Distally, it trifurcates into left anterior descending artery, left circumflex artery and ramus intermedius. LEFT ANTERIOR DESCENDING ARTERY: The left anterior descending artery is a medium caliber vessel. It is a type 2 vessel. It reaches the apex, but does not wrap around it. It is free of any significant disease. In the midportion, there is a large diagonal branch that comes off, but it is free of any significant disease. RAMUS INTERMEDIUS: The ramus intermedius is a medium caliber vessel, has a superior and inferior branch coming from the midportion that are free of any s ignificant disease. LEFT CIRCUMFLEX ARTERY: The left circumflex artery is a medium caliber vessel. It has no significant stenosis throughout it. In the distal portion, it gives rise to the obtuse marginal branch. It is free of any significant disease. RIGHT CORONARY ARTERY: The right coronary artery is a medium caliber vessel. It is free of any significant disease. Distally, it bifurcates into right PDA and PLV as it is a dominant vessel. The right PDA and PLV are free of any significant disease. IMPRESSION: Minimal coronary disease. Normal EDP. No gradient across the aortic valve. PLAN: Aggressive medical management and risk factor modification are advised. Dr. Nicole was present, supervised, and performed quiroz portions of this procedure. I was personally present throughout the entire procedure. 05/28/2014 ASSESSMENT/PLAN ASSESSMENT/PLAN 1. Chest pain: potentially related to bronchospasm, coughing spells. doubt ACS 2. AECOPD: pulmonary managing 3. HTN: labile 4. HLP: on home statin 5. Obesity 6. Suspect diastolic CHF 7. DULCE features 8. Tobaccoism 9. Tension PIERSON: defer to PCP, no focal neuro symptoms. 10. GERD: PPI in place Recommendations 1. Transfer to 6S for tele 2. Trop series, lipids and EKG. TSH, BNP 3. Consider outpt DULCE workup 4. Continue home BP regimen and will adjust per trend. Lasix PRN 5. [facility] records reviewed as noted above. EULALIO CRUZ MD 10/18/19 8599: CARDIAC CONSULT ASSESSMENT/PLAN ASSESSMENT/PLAN Pt. seen and examind. 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 low risk presentation for any cardiac issues. Suspect COPD Supportive care. Consider outpt f/u with cardiac testing prn. thanks. MATTIE BRIGHT K 9 HANDLER/ DEPUTY Oct 18, 2019 10:18 EULALIO CRUZ MD Oct 18, 2019 17:59
[2019-10-18 10:42] LABS: CHOLESTEROL/HDL RATIO 2.6
--- NOTE | 2019-10-18 11:05 | PDOC ---
PULMONARY PROGRESS NOTES Subjective PT STILL SOA AND COUGH Vitals Vital Signs Date Time Temp Pulse Resp B/P (MAP) Pulse Ox O2 Delivery O2 Flow Rate FiO2 10/18/19 09:26 79 160/63 10/18/19 09:25 Nasal Cannula 4.0 10/18/19 07:10 91 10/18/19 07:00 97.6 18 97.6 ROS: No Nausea, No Chest Pain, No Abdominal Pain, No Increase Cough General: Alert Lungs: Clear Cardiovascular: S1, S2 Abdomen: Soft Neuro Exam: Alert Extremities: No Edema Skin: Warm Labs Laboratory Tests Test 10/18/19 04:10 White Blood Count 8.0 x10^3/uL (4.0-11.0) Red Blood Count 3.92 x10^6/uL (3.50-5.40) Hemoglobin 11.6 g/dL (12.0-15.5) Hematocrit 35.3 % (36.0-47.0) Mean Corpuscular Volume 90 fL (79-100) Mean Corpuscular Hemoglobin 30 pg (25-35) Mean Corpuscular Hemoglobin Concent 33 g/dL (31-37) Red Cell Distribution Width 15.4 % (11.5-14.5) Platelet Count 534 x10^3/uL (140-400) Neutrophils (%) (Auto) 52 % (31-73) Lymphocytes (%) (Auto) 34 % (24-48) Monocytes (%) (Auto) 14 % (0-9) Eosinophils (%) (Auto) 0 % (0-3) Basophils (%) (Auto) 0 % (0-3) Neutrophils # (Auto) 4.2 x10^3/uL (1.8-7.7) Lymphocytes # (Auto) 2.7 x10^3/uL (1.0-4.8) Monocytes # (Auto) 1.1 x10^3/uL (0.0-1.1) Eosinophils # (Auto) 0.0 x10^3/uL (0.0-0.7) Basophils # (Auto) 0.0 x10^3/uL (0.0-0.2) Sodium Level 144 mmol/L (136-145) Potassium Level 4.1 mmol/L (3.5-5.1) Chloride Level 105 mmol/L (98-107) Carbon Dioxide Level 34 mmol/L (21-32) Anion Gap 5 (6-14) Blood Urea Nitrogen 8 mg/dL (7-20) Creatinine 0.5 mg/dL (0.6-1.0) Estimated GFR (Cockcroft-Gault) 127.2 Glucose Level 102 mg/dL (70-99) Calcium Level 8.7 mg/dL (8.5-10.1) Troponin I Quantitative < 0.017 ng/mL (0.000-0.055) Triglycerides Level 113 mg/dL (0-150) Cholesterol Level 132 mg/dL (0-200) LDL Cholesterol, Calculated 59 mg/dL (0-100) VLDL Cholesterol, Calculated 23 mg/dL (0-40) Non-HDL Cholesterol Calculated 82 mg/dL (0-129) HDL Cholesterol 50 mg/dL (40-60) Cholesterol/HDL Ratio 2.6 Laboratory Tests Test 10/18/19 04:10 White Blood Count 8.0 x10^3/uL (4.0-11.0) Red Blood Count 3.92 x10^6/uL (3.50-5.40) Hemoglobin 11.6 g/dL (12.0-15.5) Hematocrit 35.3 % (36.0-47.0) Mean Corpuscular Volume 90 fL (79-100) Mean Corpuscular Hemoglobin 30 pg (25-35) Mean Corpuscular Hemoglobin Concent 33 g/dL (31-37) Red Cell Distribution Width 15.4 % (11.5-14.5) Platelet Count 534 x10^3/uL (140-400) Neutrophils (%) (Auto) 52 % (31-73) Lymphocytes (%) (Auto) 34 % (24-48) Monocytes (%) (Auto) 14 % (0-9) Eosinophils (%) (Auto) 0 % (0-3) Basophils (%) (Auto) 0 % (0-3) Neutrophils # (Auto) 4.2 x10^3/uL (1.8-7.7) Lymphocytes # (Auto) 2.7 x10^3/uL (1.0-4.8) Monocytes # (Auto) 1.1 x10^3/uL (0.0-1.1) Eosinophils # (Auto) 0.0 x10^3/uL (0.0-0.7) Basophils # (Auto) 0.0 x10^3/uL (0.0-0.2) Sodium Level 144 mmol/L (136-145) Potassium Level 4.1 mmol/L (3.5-5.1) Chloride Level 105 mmol/L (98-107) Carbon Dioxide Level 34 mmol/L (21-32) Anion Gap 5 (6-14) Blood Urea Nitrogen 8 mg/dL (7-20) Creatinine 0.5 mg/dL (0.6-1.0) Estimated GFR (Cockcroft-Gault) 127.2 Glucose Level 102 mg/dL (70-99) Calcium Level 8.7 mg/dL (8.5-10.1) Troponin I Quantitative < 0.017 ng/mL (0.000-0.055) Triglycerides Level 113 mg/dL (0-150) Cholesterol Level 132 mg/dL (0-200) LDL Cholesterol, Calculated 59 mg/dL (0-100) VLDL Cholesterol, Calculated 23 mg/dL (0-40) Non-HDL Cholesterol Calculated 82 mg/dL (0-129) HDL Cholesterol 50 mg/dL (40-60) Cholesterol/HDL Ratio 2.6 Medications Active Scripts Medications Dose Route/Sig Max Daily Dose Days Date Category Ja Aspirin Powder Pouches (Aspirin/Caffeine) 1 Each Powd.pack 1 Each PO PRN Q6HRS PRN 10/15/19 Reported Vitamin D2 (Ergocalciferol (Vitamin D2)) 2,000 Unit Tablet 5,000 Unit PO WEEKLY 10/15/19 Reported Symbicort 160-4.5 Mcg Inhaler (Budesonide/Formoterol Fumarate) 10.2 Gm Hfa.aer.ad 2 Puff IH BID 10/14/19 Reported Symbicort 160-4.5 Mcg Inhaler (Budesonide/Formoterol Fumarate) 10.2 Gm Hfa.aer.ad 2 Puff IH BID 10/14/19 Reported Alendronate Sodium 70 Mg Tablet 70 Mg PO Q2WKS 10/14/19 Reported Cetirizine Hcl 10 Mg Tablet 10 Mg PO DAILY 10/14/19 Reported Percocet 5-325 Mg Tablet (Oxycodone/Acetaminophen) 1 Each Tablet 1 Tab PO QID PRN 04/05/18 Reported Colace (Docusate Sodium) 100 Mg Capsule 1 Cap PO BID 04/05/18 Reported Ambien (Zolpidem Tartrate) 10 Mg Tablet 1 Tab PO QHS 04/05/18 Reported Montelukast Sodium Tablet (Montelukast Sodium) 10 Mg Tablet 1 Tab PO DAILY 04/05/18 Reported Losartan Potassium 50 Mg Tablet 50 Mg PO DAILY 04/05/18 Reported Amlodipine Besylate 5 Mg Tablet 5 Mg PO DAILY 04/05/18 Reported Soma (Carisoprodol) 350 Mg Tablet 350 Mg PO 08/18/13 Reported Lipitor (Atorvastatin Calcium) 40 Mg Tablet 40 Mg PO 08/18/13 Reported Omeprazole 20 Mg Capsule.dr 20 Mg PO 1X 08/18/13 Reported Impression . IMPRESSION: 1. Acute hypoxic respiratory failure secondary to acute exacerbation of chronic obstructive pulmonary disease and acute bronchitis. 2. A 35-40 years of tobacco use, suspect underlying chronic obstructive pulmonary disease. 3. Mild leukocytosis on admission, improved now. Plan . WILL CONTINUE THE SAME FOR NOW 6MW IN AM DC ON 10/19 JULIO DUMAS MD Oct 18, 2019 11:05
[2019-10-18 11:36] VITALS: BP 172/80
--- NOTE | 2019-10-18 13:07 | EKG ---
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
[2019-10-18] MEDS ORDERED: FUROSEMIDE 40 MG/4 ML VIAL. IVP ONE (14:00)
[2019-10-18 15:04] VITALS: BP 173/73
--- NOTE | 2019-10-18 15:18 | PDOC ---
[employer] PROGRESS NOTE Chief Complaint Chief Complaint Chest Pain Community-acquired pneumonia, Bibasilar History of tobacco abuse greater than [id number] history of smoking Acute Hypoxic Respiratory Failure COPD exacerbation with Acute Bronchitis Leukocytosis on admission, improved Hypertension HLD Hypokalemia GERD Chronic Pain Tension PIERSON History of Present Illness History of Present Illness Still feeling under the weather. The patient doesn't feel like she is making much progress in her cough is getting worse. She is unable to expectorate the secretions since her quite thick. Reassurance has been provided all of her concerns were addressed to the best of my abilities smoking cessation counseling took place again around 10 minutes 10/16/2019 Patient was seen and examined D/W RN She reports that she is currently "In pain" and she normally takes muscle relaxants and [place] at home 10/17/2019 -Patient seen and examined. -Chart reviewed and care discussed with nursing staff. -Pt laying comfortably in bed, NAD. No new complaints or issues at this time. Wi ll monitor. 10/18/2019 -Patient seen and examined. -Chart reviewed and care discussed with nursing staff. -Pt laying comfortably in bed, NAD. Discussed worry about her chest pain. Cardiology consulted and following. Discussed that all test so far do not show her heart is being damaged. Vitals/I&O Vitals/I&O: Vital Signs Date Time Temp Pulse Resp B/P (MAP) Pulse Ox O2 Delivery O2 Flow Rate FiO2 10/18/19 15:08 18 Nasal Cannula 4.0 10/18/19 15:04 98.5 78 173/73 (106) 96 98.5 I & O 10/17/19 10/17/19 10/18/19 15:00 23:00 07:00 Intake Total 600 ml 1300 ml 250 ml Output Total 600 ml 850 ml Balance 600 ml 700 ml -600 ml Physical Exam General: Alert, Oriented X3, Cooperative, No acute distress Heart: Regular rate (SR), Other (distant heart sounds) Lungs: Clear Abdomen: Soft, No tenderness, Other (obese) Extremities: No cyanosis, Other (2+ bilateral LE pitting edema) Skin: No breakdown, No significant lesion Labs Labs: Laboratory Tests Test 10/18/19 04:10 10/18/19 12:00 White Blood Count 8.0 x10^3/uL (4.0-11.0) Red Blood Count 3.92 x10^6/uL (3.50-5.40) Hemoglobin 11.6 g/dL (12.0-15.5) Hematocrit 35.3 % (36.0-47.0) Mean Corpuscular Volume 90 fL (79-100) Mean Corpuscular Hemoglobin 30 pg (25-35) Mean Corpuscular Hemoglobin Concent 33 g/dL (31-37) Red Cell Distribution Width 15.4 % (11.5-14.5) Platelet Count 534 x10^3/uL (140-400) Neutrophils (%) (Auto) 52 % (31-73) Lymphocytes (%) (Auto) 34 % (24-48) Monocytes (%) (Auto) 14 % (0-9) Eosinophils (%) (Auto) 0 % (0-3) Basophils (%) (Auto) 0 % (0-3) Neutrophils # (Auto) 4.2 x10^3/uL (1.8-7.7) Lymphocytes # (Auto) 2.7 x10^3/uL (1.0-4.8) Monocytes # (Auto) 1.1 x10^3/uL (0.0-1.1) Eosinophils # (Auto) 0.0 x10^3/uL (0.0-0.7) Basophils # (Auto) 0.0 x10^3/uL (0.0-0.2) Sodium Level 144 mmol/L (136-145) Potassium Level 4.1 mmol/L (3.5-5.1) Chloride Level 105 mmol/L (98-107) Carbon Dioxide Level 34 mmol/L (21-32) Anion Gap 5 (6-14) Blood Urea Nitrogen 8 mg/dL (7-20) Creatinine 0.5 mg/dL (0.6-1.0) Estimated GFR (Cockcroft-Gault) 127.2 Glucose Level 102 mg/dL (70-99) Calcium Level 8.7 mg/dL (8.5-10.1) Troponin I Quantitative < 0.017 ng/mL (0.000-0.055) < 0.017 ng/mL (0.000-0.055) ZR-Cgc-[id number]-Type Natriuretic Peptide 917 pg/mL (0-124) Triglycerides Level 113 mg/dL (0-150) Cholesterol Level 132 mg/dL (0-200) LDL Cholesterol, Calculated 59 mg/dL (0-100) VLDL Cholesterol, Calculated 23 mg/dL (0-40) Non-HDL Cholesterol Calculated 82 mg/dL (0-129) HDL Cholesterol 50 mg/dL (40-60) Cholesterol/HDL Ratio 2.6 Thyroid Stimulating Hormone (TSH) 4.925 uIU/mL (0.358-3.74) Review of Systems Review of Systems: Denies Chest pain currently Continues to have SOA Assessment and Plan Assessmemt and Plan Problems Medical Problems: (1) Bilateral pulmonary infiltrates on chest x-ray Status: Acute (2) COPD exacerbation Status: Acute (3) Hypoxia Status: Acute (4) Smoking addiction Status: Acute Assessment: Chest Pain Community-acquired pneumonia, Bibasilar History of tobacco abuse greater than 11-[id number]-gved history of smoking Acute Hypoxic Respiratory Failure COPD exacerbation with Acute Bronchitis Leukocytosis on admission, improved Hypertension HLD Hypokalemia GERD Chronic Pain Tension PIERSON Plan: -Cardiology consulted for chest pain -Cardiac Monitoring -Serial Enzymes/ECGs -Pulmonology Following -Continue supplemental O2, Steroids, and DuoNeb -Continue IV ABX (ceftriaxone & Azithromycin) -Continue Home meds -Trend labs -PT/OT -DVT ppx: Lovenox -Smoking cessation counseling -Full code Comment Review of Relevant I have reviewed the following items yang (where applicable) has been applied. WEST STROUD III DO Oct 18, 2019 15:17
[2019-10-18] MEDS ORDERED: LOSARTAN POTASSIUM 25 MG TABLET. PO ONE (17:00)
[2019-10-18] MEDS: ENOXAPARIN 40 MG/0.4 ML SYRINGE. SQ SCH (18:09)
[2019-10-18 19:25] VITALS: BP 163/75
[2019-10-18] MEDS: MONTELUKAST SODIUM 10 MG TABLET. PO SCH (21:00)
[2019-10-18] MEDS: ZOLPIDEM 5 MG TABLET. PO SCH (21:01)
[2019-10-18] MEDS: ATORVASTATIN CALCIUM 40 MG TABLET. PO SCH (21:01)
[2019-10-18 23:30] VITALS: BP 157/81
[2019-10-19] MEDS: LORazepam 0.5 MG TABLET PO PRN ×5 (00:47→21:40)
[2019-10-19 03:10] VITALS: BP 167/67
[2019-10-19] MEDS: ALBUTEROL SULFATE 2.5 MG/3 ML NEBU. NEB PRN (03:36)
[2019-10-19] MEDS: IV NORMAL SALINE 1000ML BAG 1,000 ML IV SCH ×3 (04:19→23:15)
[2019-10-19] MEDS: oxyCODONE/APAP 5/325 1 TAB TABLET PO PRN ×3 (04:19→17:21)
[2019-10-19 05:45] LABS: CALCIUM 8.8 mg/dL (8.5-10.1); CREATININE 0.5 mg/dL (0.6-1.0); GFR 127.2; POTASSIUM 4.5 mmol/L (3.5-5.1)
[2019-10-19 07:30] VITALS: BP 182/87
[2019-10-19] MEDS: BUDESONIDE 0.5 MG/2 ML NEBU. NEB SCH ×2 (07:37→19:31)
[2019-10-19] MEDS: ALBUTEROL SULFATE 2.5 MG/3 ML NEBU. NEB SCH ×4 (07:37→19:31)
[2019-10-19 07:46] LABS: BASO # 0.1 x10^3/uL (0.0-0.2); BASO % 1 % (0-3); EOS % 0 % (0-3); HEMATOCRIT 38.9 % (36.0-47.0); HEMOGLOBIN 12.7 g/dL (12.0-15.5); LYMPH # 2.9 x10^3/uL (1.0-4.8); LYMPH % 20 % (24-48); MEAN CORPUSCULAR HEMOGLOBIN 29 pg (25-35); MEAN CORPUSCULAR HGB CONC 33 g/dL (31-37); MEAN CORPUSCULAR VOLUME 90 fL (79-100); MONO # 1.5 x10^3/uL (0.0-1.1); MONO % 10 % (0-9); NEUT # 9.8 x10^3/uL (1.8-7.7); NEUT % 69 % (31-73); PLATELET COUNT 659 x10^3/uL (140-400); RED BLOOD COUNT 4.31 x10^6/uL (3.50-5.40); RED CELL DISTRIBUTION WIDTH 14.8 % (11.5-14.5); WHITE BLOOD COUNT 14.3 x10^3/uL (4.0-11.0)
[2019-10-19] MEDS: LOSARTAN POTASSIUM 25 MG TABLET. PO SCH (08:36)
[2019-10-19] MEDS: amLODIPine BESYLATE 5 MG TABLET PO SCH (08:37)
[2019-10-19] MEDS: CEFDINIR 300 MG CAPSULE PO SCH ×2 (08:37→21:40)
[2019-10-19] MEDS: PANTOPRAZOLE 40 MG TABLET.DR. PO SCH (08:37)
[2019-10-19] MEDS: CETIRIZINE HCL 10 MG TABLET. PO SCH (08:37)
[2019-10-19] MEDS: DOCUSATE SODIUM 100 MG CAPSULE. PO SCH ×2 (08:37→21:39)
[2019-10-19] MEDS: LACTOBACILLUS RHAMNOSUS GG 1 CAPSULE. PO SCH ×2 (08:37→21:40)
[2019-10-19] MEDS: predniSONE 20 MG TABLET PO SCH (08:37)
[2019-10-19] MEDS: SPIRIVA RESPIMAT INH SCH ×2 (08:38→21:00)
[2019-10-19] MEDS: SYMBICORT 160/4.5 NEB SCH ×2 (08:38→21:00)
--- NOTE | 2019-10-19 08:46 | PDOC ---
PULMONARY PROGRESS NOTES Subjective PT STILL SOA BUT BETTER TODAY Vitals Vital Signs Date Time Temp Pulse Resp B/P (MAP) Pulse Ox O2 Delivery O2 Flow Rate FiO2 10/19/19 08:37 79 182/87 10/19/19 07:39 89 Nasal Cannula 4.0 10/19/19 07:30 98.7 20 98.7 Comments APPEARS DEPRESSED PT AGREES ROS: No Nausea, No Chest Pain, No Abdominal Pain, No Increase Cough General: Alert Lungs: Clear Cardiovascular: S1, S2 Abdomen: Soft Neuro Exam: Alert Extremities: No Edema Skin: Warm Labs Laboratory Tests Test 10/18/19 04:10 10/18/19 12:00 10/19/19 03:50 10/19/19 07:20 White Blood Count 8.0 x10^3/uL (4.0-11.0) 14.3 x10^3/uL (4.0-11.0) Red Blood Count 3.92 x10^6/uL (3.50-5.40) 4.31 x10^6/uL (3.50-5.40) Hemoglobin 11.6 g/dL (12.0-15.5) 12.7 g/dL (12.0-15.5) Hematocrit 35.3 % (36.0-47.0) 38.9 % (36.0-47.0) Mean Corpuscular Volume 90 fL (79-100) 90 fL (79-100) Mean Corpuscular Hemoglobin 30 pg (25-35) 29 pg (25-35) Mean Corpuscular Hemoglobin Concent 33 g/dL (31-37) 33 g/dL (31-37) Red Cell Distribution Width 15.4 % (11.5-14.5) 14.8 % (11.5-14.5) Platelet Count 534 x10^3/uL (140-400) 659 x10^3/uL (140-400) Neutrophils (%) (Auto) 52 % (31-73) 69 % (31-73) Lymphocytes (%) (Auto) 34 % (24-48) 20 % (24-48) Monocytes (%) (Auto) 14 % (0-9) 10 % (0-9) Eosinophils (%) (Auto) 0 % (0-3) 0 % (0-3) Basophils (%) (Auto) 0 % (0-3) 1 % (0-3) Neutrophils # (Auto) 4.2 x10^3/uL (1.8-7.7) 9.8 x10^3/uL (1.8-7.7) Lymphocytes # (Auto) 2.7 x10^3/uL (1.0-4.8) 2.9 x10^3/uL (1.0-4.8) Monocytes # (Auto) 1.1 x10^3/uL (0.0-1.1) 1.5 x10^3/uL (0.0-1.1) Eosinophils # (Auto) 0.0 x10^3/uL (0.0-0.7) 0.0 x10^3/uL (0.0-0.7) Basophils # (Auto) 0.0 x10^3/uL (0.0-0.2) 0.1 x10^3/uL (0.0-0.2) Sodium Level 144 mmol/L (136-145) 143 mmol/L (136-145) Potassium Level 4.1 mmol/L (3.5-5.1) 4.5 mmol/L (3.5-5.1) Chloride Level 105 mmol/L (98-107) 101 mmol/L (98-107) Carbon Dioxide Level 34 mmol/L (21-32) 32 mmol/L (21-32) Anion Gap 5 (6-14) 10 (6-14) Blood Urea Nitrogen 8 mg/dL (7-20) 8 mg/dL (7-20) Creatinine 0.5 mg/dL (0.6-1.0) 0.5 mg/dL (0.6-1.0) Estimated GFR (Cockcroft-Gault) 127.2 127.2 Glucose Level 102 mg/dL (70-99) 68 mg/dL (70-99) Calcium Level 8.7 mg/dL (8.5-10.1) 8.8 mg/dL (8.5-10.1) Troponin I Quantitative < 0.017 ng/mL (0.000-0.055) < 0.017 ng/mL (0.000-0.055) DJ-Hej-J-Type Natriuretic Peptide 917 pg/mL (0-124) Triglycerides Level 113 mg/dL (0-150) Cholesterol Level 132 mg/dL (0-200) LDL Cholesterol, Calculated 59 mg/dL (0-100) VLDL Cholesterol, Calculated 23 mg/dL (0-40) Non-HDL Cholesterol Calculated 82 mg/dL (0-129) HDL Cholesterol 50 mg/dL (40-60) Cholesterol/HDL Ratio 2.6 Thyroid Stimulating Hormone (TSH) 4.925 uIU/mL (0.358-3.74) Laboratory Tests Test 10/18/19 12:00 10/19/19 03:50 10/19/19 07:20 Troponin I Quantitative < 0.017 ng/mL (0.000-0.055) Sodium Level 143 mmol/L (136-145) Potassium Level 4.5 mmol/L (3.5-5.1) Chloride Level 101 mmol/L (98-107) Carbon Dioxide Level 32 mmol/L (21-32) Anion Gap 10 (6-14) Blood Urea Nitrogen 8 mg/dL (7-20) Creatinine 0.5 mg/dL (0.6-1.0) Estimated GFR (Cockcroft-Gault) 127.2 Glucose Level 68 mg/dL (70-99) Calcium Level 8.8 mg/dL (8.5-10.1) White Blood Count 14.3 x10^3/uL (4.0-11.0) Red Blood Count 4.31 x10^6/uL (3.50-5.40) Hemoglobin 12.7 g/dL (12.0-15.5) Hematocrit 38.9 % (36.0-47.0) Mean Corpuscular Volume 90 fL (79-100) Mean Corpuscular Hemoglobin 29 pg (25-35) Mean Corpuscular Hemoglobin Concent 33 g/dL (31-37) Red Cell Distribution Width 14.8 % (11.5-14.5) Platelet Count 659 x10^3/uL (140-400) Neutrophils (%) (Auto) 69 % (31-73) Lymphocytes (%) (Auto) 20 % (24-48) Monocytes (%) (Auto) 10 % (0-9) Eosinophils (%) (Auto) 0 % (0-3) Basophils (%) (Auto) 1 % (0-3) Neutrophils # (Auto) 9.8 x10^3/uL (1.8-7.7) Lymphocytes # (Auto) 2.9 x10^3/uL (1.0-4.8) Monocytes # (Auto) 1.5 x10^3/uL (0.0-1.1) Eosinophils # (Auto) 0.0 x10^3/uL (0.0-0.7) Basophils # (Auto) 0.1 x10^3/uL (0.0-0.2) Medications Active Scripts Medications Dose Route/Sig Max Daily Dose Days Date Category Ja Aspirin Powder Pouches (Aspirin/Caffeine) 1 Each Powd.pack 1 Each PO PRN Q6HRS PRN 10/15/19 Reported Vitamin D2 (Ergocalciferol (Vitamin D2)) 2,000 Unit Tablet 5,000 Unit PO WEEKLY 10/15/19 Reported Symbicort 160-4.5 Mcg Inhaler (Budesonide/Formoterol Fumarate) 10.2 Gm Hfa.aer.ad 2 Puff IH BID 10/14/19 Reported Symbicort 160-4.5 Mcg Inhaler (Budesonide/Formoterol Fumarate) 10.2 Gm Hfa.aer.ad 2 Puff IH BID 10/14/19 Reported Alendronate Sodium 70 Mg Tablet 70 Mg PO Q2WKS 10/14/19 Reported Cetirizine Hcl 10 Mg Tablet 10 Mg PO DAILY 10/14/19 Reported Percocet 5-325 Mg Tablet (Oxycodone/Acetaminophen) 1 Each Tablet 1 Tab PO QID PRN 04/05/18 Reported Colace (Docusate Sodium) 100 Mg Capsule 1 Cap PO BID 04/05/18 Reported Ambien (Zolpidem Tartrate) 10 Mg Tablet 1 Tab PO QHS 04/05/18 Reported Montelukast Sodium Tablet (Montelukast Sodium) 10 Mg Tablet 1 Tab PO DAILY 04/05/18 Reported Losartan Potassium 50 Mg Tablet 50 Mg PO DAILY 04/05/18 Reported Amlodipine Besylate 5 Mg Tablet 5 Mg PO DAILY 04/05/18 Reported Soma (Carisoprodol) 350 Mg Tablet 350 Mg PO 08/18/13 Reported Lipitor (Atorvastatin Calcium) 40 Mg Tablet 40 Mg PO 08/18/13 Reported Omeprazole 20 Mg Capsule.dr 20 Mg PO 1X 12/27/13 Reported Impression . IMPRESSION: 1. Acute hypoxic respiratory failure secondary to acute exacerbation of chronic obstructive pulmonary disease and acute bronchitis. 2. A 35-40 years of tobacco use, suspect underlying chronic obstructive pulmonary disease. 3. Mild leukocytosis on admission, improved now. 4. DEPRESSION Plan . PT AGREES TO START [facility] HOME N AM 10/20 WILL CONTINUE THE SAME FOR NOW 6MW IN AM JULIO DUMAS MD Oct 19, 2019 08:46
[2019-10-19] MEDS ORDERED: ERGOCALCIFEROL (VITAMIN D2) 50,000 UNIT CAPSULE. PO SCH (09:00)
--- NOTE | 2019-10-19 10:34 | PDOC ---
[employer] PROGRESS NOTE Chief Complaint Chief Complaint Chest Pain Community-acquired pneumonia, Bibasilar History of tobacco abuse greater than [id number] history of smoking Acute Hypoxic Respiratory Failure COPD exacerbation with Acute Bronchitis Leukocytosis on admission, improved Hypertension HLD Hypokalemia GERD Chronic Pain Tension PIERSON History of Present Illness History of Present Illness Still feeling under the weather. The patient doesn't feel like she is making much progress in her cough is getting worse. She is unable to expectorate the secretions since her quite thick. Reassurance has been provided all of her concerns were addressed to the best of my abilities smoking cessation counseling took place again around 10 minutes 10/16/2019 Patient was seen and examined D/W RN She reports that she is currently "In pain" and she normally takes muscle relaxants and [place] at home 10/17/2019 -Patient seen and examined. -Chart reviewed and care discussed with nursing staff. -Pt laying comfortably in bed, NAD. No new complaints or issues at this time. Wi ll monitor. 10/18/2019 -Patient seen and examined. -Chart reviewed and care discussed with nursing staff. -Pt laying comfortably in bed, NAD. Discussed worry about her chest pain. Cardiology consulted and following. Discussed that all test so far do not show her heart is being damaged. 10/19/2019 Pt seen and examined Pt complains of painful PIERSON, will consult neurology Pt currently on O2, fluids Discussed smoking habits with pt Chart reviewed Discussed pt care with RN Discussed possibility of discharge with pt Reviewed home meds with pt and RN Vitals/I&O Vitals/I&O: Vital Signs Date Time Temp Pulse Resp B/P (MAP) Pulse Ox O2 Delivery O2 Flow Rate FiO2 10/19/19 08:37 79 182/87 10/19/19 08:00 Nasal Cannula 4.0 10/19/19 07:39 89 10/19/19 07:30 98.7 20 98.7 I & O 10/18/19 10/18/19 10/19/19 15:00 23:00 07:00 Intake Total 200 ml 440 ml 400 ml Balance 200 ml 440 ml 400 ml Physical Exam General: Alert, Oriented X3, Cooperative, No acute distress Heart: Regular rate (SR), Other (distant heart sounds) Lungs: Clear Abdomen: Soft, No tenderness, Other (obese) Extremities: No cyanosis, Other (2+ bilateral LE pitting edema) Skin: No breakdown, No significant lesion Labs Labs: Laboratory Tests Test 10/18/19 12:00 10/19/19 03:50 10/19/19 07:20 Troponin I Quantitative < 0.017 ng/mL (0.000-0.055) Sodium Level 143 mmol/L (136-145) Potassium Level 4.5 mmol/L (3.5-5.1) Chloride Level 101 mmol/L (98-107) Carbon Dioxide Level 32 mmol/L (21-32) Anion Gap 10 (6-14) Blood Urea Nitrogen 8 mg/dL (7-20) Creatinine 0.5 mg/dL (0.6-1.0) Estimated GFR (Cockcroft-Gault) 127.2 Glucose Level 68 mg/dL (70-99) Calcium Level 8.8 mg/dL (8.5-10.1) White Blood Count 14.3 x10^3/uL (4.0-11.0) Red Blood Count 4.31 x10^6/uL (3.50-5.40) Hemoglobin 12.7 g/dL (12.0-15.5) Hematocrit 38.9 % (36.0-47.0) Mean Corpuscular Volume 90 fL (79-100) Mean Corpuscular Hemoglobin 29 pg (25-35) Mean Corpuscular Hemoglobin Concent 33 g/dL (31-37) Red Cell Distribution Width 14.8 % (11.5-14.5) Platelet Count 659 x10^3/uL (140-400) Neutrophils (%) (Auto) 69 % (31-73) Lymphocytes (%) (Auto) 20 % (24-48) Monocytes (%) (Auto) 10 % (0-9) Eosinophils (%) (Auto) 0 % (0-3) Basophils (%) (Auto) 1 % (0-3) Neutrophils # (Auto) 9.8 x10^3/uL (1.8-7.7) Lymphocytes # (Auto) 2.9 x10^3/uL (1.0-4.8) Monocytes # (Auto) 1.5 x10^3/uL (0.0-1.1) Eosinophils # (Auto) 0.0 x10^3/uL (0.0-0.7) Basophils # (Auto) 0.1 x10^3/uL (0.0-0.2) Review of Systems Review of Systems: Neuro: pt complains of PIERSON and changes in vision GI: pt denies NV or abd pain Assessment and Plan Assessmemt and Plan Chest Pain Community-acquired pneumonia, Bibasilar History of tobacco abuse greater than [id number] history of smoking Acute Hypoxic Respiratory Failure COPD exacerbation with Acute Bronchitis Leukocytosis on admission, improved Hypertension HLD Hypokalemia GERD Chronic Pain Tension PIERSON Plan: -Cardiac Monitoring -Consult Neuro for PIERSON -Serial Enzymes/ECGs -Pulmonology Following -Continue supplemental O2, Steroids, and DuoNeb -Continue IV ABX (ceftriaxone & Azithromycin) -Continue Home meds -Trend labs -PT/OT -DVT ppx: Lovenox -Smoking cessation counseling -Full code -d/c to SNU pending subspecialists approval Comment Review of Relevant I have reviewed the following items yang (where applicable) has been applied. Medications: Current Medications Medications (Trade) Dose Ordered Sig/Tammi Route PRN Reason Start Time Stop Time Status Last Admin Dose Admin Ergocalciferol (Vitamin D2) 50,000 unit WEEKLY PO 10/19/19 09:00 10/19/19 08:36 Losartan Potassium (Cozaar) 100 mg DAILY PO 10/19/19 09:00 10/19/19 08:36 Losartan Potassium (Cozaar) 50 mg 1X ONCE PO 10/18/19 17:00 10/18/19 17:01 DC 10/18/19 18:08 WEST STROUD III DO Oct 19, 2019 10:33
[2019-10-19 11:52] VITALS: BP 175/85
--- NOTE | 2019-10-19 14:44 | NUR ---
SS following up with discharge planning. SS met with pt to discuss discharge planning. PT recommending acute rehabilitation. Pt reported that she spoke with her insurance on the phoned and will go home with oxygen and [facility], ; fax [phone]. Six minute walk ordered. SS will continue to follow for discharge planning.
[2019-10-19 15:31] VITALS: BP 161/73
[2019-10-19] MEDS: SERTRALINE 50 MG TABLET. PO SCH (17:21)
[2019-10-19] MEDS: ENOXAPARIN 40 MG/0.4 ML SYRINGE. SQ SCH (17:21)
--- NOTE | 2019-10-19 17:53 | PDOC2 ---
NEUROLOGY CONSULT Date of Admission Date of Admission DATE: 10/19/19 TIME: 17:40 Reason for Consult Reason for Consult: IMPRESSION: Worsening of headaches x 2 days. Hypoxia. SOB. Cough. Chills. Bilateral pulmonary infiltrates. Chronic headaches. Leukocytosis. COPD. HTN. HLD. IIP? Obesity. RECOMMENDATIONS/PLAN: Brain MRI w/wo contrast. Lab: see orders. Treat medical diseases. Pain control. Continue Statin HS. OT/PT. History of Present Illness This is a 58-year-old female patient with past medical history of hypertension, COPD, smoking and other medical diseases has been having respiratory symptoms after sickness of family members. Her symptoms became worse so she eventually came to [facility] for medical attention. She has history of chronic headaches in her entire head for about 2 years nut her headaches became worse in the past a couple of days with blurred vision, so Neurology consultation is requested. Past Medical History Cardiovascular: HTN Pulmonary: COPD PAST SURGERY HISTORY: Appendectomy, Hysterectomy, Tonsillectomy, Tubal ligation, BLADDER TIGHTENING ALLERGY: NKDA MEDICATIONS: Refer to [facility] FAMILY HISTORY: Non contributory. SOCIAL HISTORY: Lives with her family. Smoking Status: Current Every Day Smoker Alcohol Use: None Drug Use: Marijuana REVIEW OF SYSTEMS: Constitutional: Obesity. Head: No traumatic brain or head injury. Skin: No edema, or rash. Ear: No infection. Eyes: No vision loss. Nose: No bleeding or purulent discharges. Hearing: No hearing decrease. Neck: No injury. Breast: No history of cancer, masses,or discharges. Cardiac: HTN, HLD. Pulmonary: COPD. GI: No GI ulcer, GI bleeding. Urinary/genital: UTI. Endocrinologic: Obesity. Skeletomuscular: No muscular atrophy. Neurological: see HP. Psychiatric: Substance use/abuse. Otherwise, not [id number] review of systems. PHYSICAL EXAMINATION: General appearance is in no acute distress. HEENT: Normocephalic and nontraumatic. Eyes, nose, ears, and throat are unremarkable. Neck is supple. No lymphadenopathy. No crepitus. Cardiovascular: S1, S2, regular rate and rhythm. Pulmonary: decreased to auscultation bilaterally. Abdomen: Bowel sounds are positive. Extremities: No rash, lesions, or edema. No restriction of range of motion NEUROLOGICAL EXAMINATION: Awake. Oriented to time, place and person. PERRL. EOMI. CN: no focal findings. Muscle tone: within normal. Muscle strength: 4 DTR: 1+ Plantar reflex: Flexor response bilaterally Gait: not examined in bed. At baseline normal. Sensory exam: no abnormal findings. No cerebellar signs elicited. F-T-N test fine. Current Medications Current Medications Current Medications Albuterol/ Ipratropium (Duoneb) 3 ml 1X ONCE NEB Last administered on 10/14/19at 11:29; Start 10/14/19 at 11:30; Stop 10/14/19 at 11:31; Status DC Prednisone (Prednisone) 60 mg 1X ONCE PO Last administered on 10/14/19at 11:26; Start 10/14/19 at 11:30; Stop 10/14/19 at 11:31; Status DC Benzonatate (Tessalon Perle) 100 mg 1X ONCE PO Last administered on 10/14/19at 11:26; Start 10/14/19 at 11:30; Stop 10/14/19 at 11:31; Status DC Albuterol/ Ipratropium (Duoneb) 3 ml 1X ONCE NEB Last administered on 10/14/19at 12:39; Start 10/14/19 at 12:30; Stop 10/14/19 at 12:31; Status DC Albuterol Sulfate (Ventolin Neb Soln) 10 mg 1X ONCE CONT NEB Last administered on 10/14/19at 12:39; Start 10/14/19 at 12:30; Stop 10/14/19 at 12:31; Status DC Ceftriaxone Sodium (Rocephin) 1 gm 1X ONCE IVP Last administered on 10/14/19at 13:25; Start 10/14/19 at 13:00; Stop 10/14/19 at 13:01; Status DC Azithromycin 250 ml @ 250 mls/hr 1X ONCE IV Last administered on 10/14/19at 13:24; Start 10/14/19 at 13:00; Stop 10/14/19 at 13:59; Status DC Potassium Chloride (Klor-Con) 40 meq 1X ONCE PO Last administered on 10/14/19at 14:30; Start 10/14/19 at 13:30; Stop 10/14/19 at 13:31; Status DC Ondansetron HCl (Zofran) 4 mg PRN Q8HRS PRN IV NAUSEA/VOMITING; Start 10/14/19 at 14:30; Stop 10/15/19 at 13:41; Status DC Acetaminophen (Tylenol) 650 mg PRN Q4HRS PRN PO FEVER Last administered on 10/14/19at 14:52; Start 10/14/19 at 14:30; Stop 10/15/19 at 13:42; Status DC Albuterol/ Ipratropium (Duoneb) 3 ml RTQID NEB ; Start 10/14/19 at 16:00; Stop 10/14/19 at 15:07; Status DC Ondansetron HCl (Zofran) 4 mg PRN Q4HRS PRN IV NAUSEA/VOMITING; Start 10/14/19 at 15:15 Zolpidem Tartrate (Ambien) 5 mg PRN QHS PRN PO INSOMNIA; Start 10/14/19 at 15:15 Acetaminophen (Tylenol) 650 mg PRN Q4HRS PRN PO TEMP OVER 100.4F OR MILD PAIN; Start 10/14/19 at 15:15 Docusate Sodium (Colace) 100 mg PRN BID PRN PO CONSTIPATION; Start 10/14/19 at 15:15 Albuterol Sulfate (Ventolin Neb Soln) 2.5 mg PRN Q4HRS PRN NEB SHORTNESS OF BREATH Last administered on 10/19/19at 03:36; Start 10/14/19 at 15:15 Albuterol/ Ipratropium (Duoneb) 3 ml Q4HRS NEB Last administered on 10/15/19at 16:34; Start 10/14/19 at 16:00; Stop 10/15/19 at 18:12; Status DC Guaifenesin (Robitussin) 200 mg PRN Q4HRS PRN PO COUGH; Start 10/14/19 at 15:15; Stop 10/14/19 at 15:17; Status DC Lorazepam (Ativan) 0.5 mg PRN Q4HRS PRN PO ANXIETY / AGITATION Last administered on 10/19/19at 13:13; Start 10/14/19 at 15:15 Ceftriaxone Sodium (Rocephin) 1 gm Q24H IVP Last administered on 10/16/19at 14:04; Start 10/15/19 at 14:00; Stop 10/16/19 at 14:36; Status DC Azithromycin 500 mg/Sodium Chloride 250 ml @ 250 mls/hr Q24H IV Last administered on 10/16/19 12:44; Start 10/15/19 at 13:00; Stop 10/16/19 at 14:36; Status DC Amlodipine Besylate (Norvasc) 5 mg DAILY PO Last administered on 10/19/19 08:37; Start 10/15/19 at 09:00 Atorvastatin Calcium (Lipitor) 40 mg QHS PO Last administered on 10/18/19 21:01; Start 10/14/19 at 21:00 Docusate Sodium (Colace) 100 mg BID PO Last administered on 10/19/19 08:37; Start 10/14/19 at 21:00 Losartan Potassium (Cozaar) 50 mg DAILY PO Last administered on 10/18/19 09:26; Start 10/15/19 at 09:00; Stop 10/18/19 at 16:36; Status DC Montelukast Sodium (Singulair) 10 mg QHS PO Last administered on 10/18/19at 21:00; Start 10/14/19 at 21:00 Oxycodone/ Acetaminophen (Percocet 5/325) 1 tab PRN QID PRN PO MODERATE PAIN, SEVERE PAIN Last administered on 10/19/19 17:21; Start 10/14/19 at 15:15 Pantoprazole Sodium (Protonix) 40 mg DAILYAC PO Last administered on 10/19/19 08:37; Start 10/15/19 at 07:30 Enoxaparin Sodium (Lovenox 40mg Syringe) 40 mg Q24H SQ Last administered on 10/19/19 17:21; Start 10/14/19 at 16:00 Guaifenesin (Mucinex) 600 mg BID PO Last administered on 10/19/19 08:37; Start 10/14/19 at 16:00 Guaifenesin (Robitussin) 200 mg PRN Q4HRS PRN PO COUGH; Start 10/14/19 at 15:15 Cetirizine HCl (ZyrTEC) 10 mg DAILY PO Last administered on 10/19/19at 08:37; Start 10/15/19 at 09:00 Non-Formulary Medication (Alendronate Sodium ) 70 mg Q2WKS PO ; Start 10/28/19 at 09:00; Status UNV Zolpidem Tartrate (Ambien) 5 mg QHS PO Last administered on 10/18/19at 21:01; Start 10/14/19 at 21:00 Non-Formulary Medication 1 ea BID NEB Last administered on 10/16/19 08:03; S tart 10/14/19 at 21:00 Potassium Chloride (Klor-Con) 40 meq Q2H PO Last administered on 10/15/19at 09:58; Start 10/15/19 at 08:00; Stop 10/15/19 at 10:01; Status DC Acetylcysteine (Mucomyst 20% Resp Treatment) 600 mg BID NEB Last administered on 10/16/19 07:41; Start 10/15/19 at 09:00; Stop 10/16/19 at 09:10; Status DC Albuterol Sulfate (Ventolin Neb Soln) 2.5 mg BID NEB ; Start 10/15/19 at 09:00; Stop 10/15/19 at 14:46; Status DC Sodium Chloride 1,000 ml @ 100 mls/hr Q10H IV Last administered on 10/19/19at 15:24; Start 10/15/19 at 09:15 Prednisone (Prednisone) 40 mg DAILY PO Last administered on 10/19/19 08:37; Start 10/16/19 at 09:00 Lactobacillus Rhamnosus (Culturelle) 1 cap BID PO Last administered on 10/19/19at 08:37; Start 10/15/19 at 21:00 Albuterol Sulfate (Ventolin Neb Soln) 2.5 mg RTBID NEB Last administered on 10/16/19at 07:41; Start 10/15/19 at 20:00; Stop 10/16/19 at 09:10; Status DC Acetaminophen/ Aspirin/Caffeine (Excedrin Migraine) 1 tab PRN Q6HRS PRN PO MIGRAINE HEADACHE Last administered on 10/15/19at 18:19; Start 10/15/19 at 18:15 Non-Formulary Medication 1 ea BID INH Last administered on 10/16/19 08:03; Start 10/15/19 at 21:00 Ergocalciferol (Vitamin D2) 50,000 unit WEEKLY PO Last administered on 10/19/19at 08:36; Start 10/19/19 at 09:00 Cyclobenzaprine HCl (Flexeril) 10 mg PRN Q8HRS PRN PO MUSCLE SPASMS; Start 10/15/19 at 19:30 Albuterol Sulfate (Ventolin Neb Soln) 2.5 mg RTQID NEB Last administered on 10/19/19at 16:02; Start 10/16/19 at 12:00 Budesonide (Pulmicort) 0.5 mg RTBID NEB Last administered on 10/19/19at 07:37; Start 10/16/19 at 10:00 Azithromycin (Zithromax) 250 mg DAILY PO Last administered on 10/17/19at 08:47; Start 10/17/19 at 09:00; Stop 10/18/19 at 08:59; Status DC Cefdinir (Omnicef) 300 mg BID PO Last administered on 10/19/19at 08:37; Start 10/17/19 at 09:00 Potassium Chloride (Klor-Con) 40 meq 1X ONCE PO Last administered on 10/17/19at 12:41; Start 10/17/19 at 13:00; Stop 10/17/19 at 13:01; Status DC Furosemide (Lasix) 40 mg 1X ONCE IVP ; Start 10/18/19 at 14:00; Stop 10/18/19 at 14:01; Status DC Losartan Potassium (Cozaar) 100 mg DAILY PO Last administered on 10/19/19at 08:36; Start 10/19/19 at 09:00 Losartan Potassium (Cozaar) 50 mg 1X ONCE PO Last administered on 10/18/19at 18:08; Start 10/18/19 at 17:00; Stop 10/18/19 at 17:01; Status DC Sertraline HCl (Zoloft) 50 mg DAILY PO Last administered on 10/19/19at 17:21; Start 10/19/19 at 17:30 Active Scripts Active Reported Ja Aspirin Powder Pouches (Aspirin/Caffeine) 1 Each Powd.pack 1 Each PO PRN Q6HRS PRN Vitamin D2 (Ergocalciferol (Vitamin D2)) 2,000 Unit Tablet 5,000 Unit PO WEEKLY Symbicort 160-4.5 Mcg Inhaler (Budesonide/Formoterol Fumarate) 10.2 Gm Hfa.aer.ad 2 Puff IH BID Symbicort 160-4.5 Mcg Inhaler (Budesonide/Formoterol Fumarate) 10.2 Gm Hfa.aer.ad 2 Puff IH BID Alendronate Sodium 70 Mg Tablet 70 Mg PO Q2WKS Cetirizine Hcl 10 Mg Tablet 10 Mg PO DAILY Percocet 5-325 Mg Tablet (Oxycodone/Acetaminophen) 1 Each Tablet 1 Tab PO QID PRN Colace (Docusate Sodium) 100 Mg Capsule 1 Cap PO BID Ambien (Zolpidem Tartrate) 10 Mg Tablet 1 Tab PO QHS Montelukast Sodium Tablet (Montelukast Sodium) 10 Mg Tablet 1 Tab PO DAILY Losartan Potassium 50 Mg Tablet 50 Mg PO DAILY Amlodipine Besylate 5 Mg Tablet 5 Mg PO DAILY Soma (Carisoprodol) 350 Mg Tablet 350 Mg PO Lipitor (Atorvastatin Calcium) 40 Mg Tablet 40 Mg PO Omeprazole 20 Mg Capsule.dr 20 Mg PO 1X Allergies Allergies: Allergies Coded Allergies Type Severity Reaction Last Updated Verified morphine Allergy Intermediate blisters 04/05/18 Yes NSAIDS (Non-Steroidal Anti-Inflamma Adverse Reaction Intermediate CAUSES STOMACH IRRITATION 10/17/19 Yes ROS Review of System The patient denies any associated fevers, chills, headache, ear pain, rhinorrhea, sore throat, stiff neck, productive cough, chest pain, shortness of breath, back or flank pain, abdominal pain, nausea, vomiting, diarrhea, constipation, dysuria, rash, numbness, weakness, tingling, incontinence, difficulty ambulating, or diaphoresis. Physical Exam Physical Exam General: Well developed, well nourished, no acute distress, well appearing HEENT: Pupils equally round and reactive to light, EOMI, no discharge, normal conjunctiva Neck: Supple, no nuchal rigidity, no JVD, trachea midline, no tenderness Cardiac: RRR, no murmurs, no gallops, no rubs Chest/Lungs: CTAB, no wheeze, no rhonchi, no crackles Abdomen: soft, non-distended, no guarding, no peritoneal signs, non-tender Back: No tenderness Extremities: no edema, pulses intact, non-tender,capillary refill <3 sec bilateral upper and lower extremities, Neuro: Alert and oriented x 4, no focal deficits, normal speech Vitals Vitals: Vital Signs Date Time Temp Pulse Resp B/P (MAP) Pulse Ox O2 Delivery O2 Flow Rate FiO2 10/19/19 17:21 91 Nasal Cannula 5.0 10/19/19 15:31 98.7 89 20 161/73 (102) 98.7 Labs Labs Laboratory Tests Test 10/18/19 04:10 10/18/19 12:00 10/19/19 03:50 10/19/19 07:20 White Blood Count 8.0 x10^3/uL (4.0-11.0) 14.3 x10^3/uL (4.0-11.0) Red Blood Count 3.92 x10^6/uL (3.50-5.40) 4.31 x10^6/uL (3.50-5.40) Hemoglobin 11.6 g/dL (12.0-15.5) 12.7 g/dL (12.0-15.5) Hematocrit 35.3 % (36.0-47.0) 38.9 % (36.0-47.0) Mean Corpuscular Volume 90 fL (79-100) 90 fL (79-100) Mean Corpuscular Hemoglobin 30 pg (25-35) 29 pg (25-35) Mean Corpuscular Hemoglobin Concent 33 g/dL (31-37) 33 g/dL (31-37) Red Cell Distribution Width 15.4 % (11.5-14.5) 14.8 % (11.5-14.5) Platelet Count 534 x10^3/uL (140-400) 659 x10^3/uL (140-400) Neutrophils (%) (Auto) 52 % (31-73) 69 % (31-73) Lymphocytes (%) (Auto) 34 % (24-48) 20 % (24-48) Monocytes (%) (Auto) 14 % (0-9) 10 % (0-9) Eosinophils (%) (Auto) 0 % (0-3) 0 % (0-3) Basophils (%) (Auto) 0 % (0-3) 1 % (0-3) Neutrophils # (Auto) 4.2 x10^3/uL (1.8-7.7) 9.8 x10^3/uL (1.8-7.7) Lymphocytes # (Auto) 2.7 x10^3/uL (1.0-4.8) 2.9 x10^3/uL (1.0-4.8) Monocytes # (Auto) 1.1 x10^3/uL (0.0-1.1) 1.5 x10^3/uL (0.0-1.1) Eosinophils # (Auto) 0.0 x10^3/uL (0.0-0.7) 0.0 x10^3/uL (0.0-0.7) Basophils # (Auto) 0.0 x10^3/uL (0.0-0.2) 0.1 x10^3/uL (0.0-0.2) Sodium Level 144 mmol/L (136-145) 143 mmol/L (136-145) Potassium Level 4.1 mmol/L (3.5-5.1) 4.5 mmol/L (3.5-5.1) Chloride Level 105 mmol/L (98-107) 101 mmol/L (98-107) Carbon Dioxide Level 34 mmol/L (21-32) 32 mmol/L (21-32) Anion Gap 5 (6-14) 10 (6-14) Blood Urea Nitrogen 8 mg/dL (7-20) 8 mg/dL (7-20) Creatinine 0.5 mg/dL (0.6-1.0) 0.5 mg/dL (0.6-1.0) Estimated GFR (Cockcroft-Gault) 127.2 127.2 Glucose Level 102 mg/dL (70-99) 68 mg/dL (70-99) Calcium Level 8.7 mg/dL (8.5-10.1) 8.8 mg/dL (8.5-10.1) Troponin I Quantitative < 0.017 ng/mL (0.000-0.055) < 0.017 ng/mL (0.000-0.055) VO-Fyp-V-Type Natriuretic Peptide 917 pg/mL (0-124) Triglycerides Level 113 mg/dL (0-150) Cholesterol Level 132 mg/dL (0-200) LDL Cholesterol, Calculated 59 mg/dL (0-100) VLDL Cholesterol, Calculated 23 mg/dL (0-40) Non-HDL Cholesterol Calculated 82 mg/dL (0-129) HDL Cholesterol 50 mg/dL (40-60) Cholesterol/HDL Ratio 2.6 Thyroid Stimulating Hormone (TSH) 4.925 uIU/mL (0.358-3.74) Laboratory Tests Test 10/19/19 03:50 10/19/19 07:20 Sodium Level 143 mmol/L (136-145) Potassium Level 4.5 mmol/L (3.5-5.1) Chloride Level 101 mmol/L (98-107) Carbon Dioxide Level 32 mmol/L (21-32) Anion Gap 10 (6-14) Blood Urea Nitrogen 8 mg/dL (7-20) Creatinine 0.5 mg/dL (0.6-1.0) Estimated GFR (Cockcroft-Gault) 127.2 Glucose Level 68 mg/dL (70-99) Calcium Level 8.8 mg/dL (8.5-10.1) White Blood Count 14.3 x10^3/uL (4.0-11.0) Red Blood Count 4.31 x10^6/uL (3.50-5.40) Hemoglobin 12.7 g/dL (12.0-15.5) Hematocrit 38.9 % (36.0-47.0) Mean Corpuscular Volume 90 fL (79-100) Mean Corpuscular Hemoglobin 29 pg (25-35) Mean Corpuscular Hemoglobin Concent 33 g/dL (31-37) Red Cell Distribution Width 14.8 % (11.5-14.5) Platelet Count 659 x10^3/uL (140-400) Neutrophils (%) (Auto) 69 % (31-73) Lymphocytes (%) (Auto) 20 % (24-48) Monocytes (%) (Auto) 10 % (0-9) Eosinophils (%) (Auto) 0 % (0-3) Basophils (%) (Auto) 1 % (0-3) Neutrophils # (Auto) 9.8 x10^3/uL (1.8-7.7) Lymphocytes # (Auto) 2.9 x10^3/uL (1.0-4.8) Monocytes # (Auto) 1.5 x10^3/uL (0.0-1.1) Eosinophils # (Auto) 0.0 x10^3/uL (0.0-0.7) Basophils # (Auto) 0.1 x10^3/uL (0.0-0.2) TERRI VÁZQUEZ MD Oct 19, 2019 17:53
[2019-10-19 19:10] VITALS: BP 160/67
[2019-10-19] MEDS: MONTELUKAST SODIUM 10 MG TABLET. PO SCH (21:39)
[2019-10-19] MEDS: ATORVASTATIN CALCIUM 40 MG TABLET. PO SCH (21:40)
[2019-10-19] MEDS: CYCLOBENZAPRINE 10 MG TABLET. PO PRN (21:40)
[2019-10-19] MEDS: ZOLPIDEM 5 MG TABLET. PO SCH (21:40)
[2019-10-19 23:10] VITALS: BP 158/67
[2019-10-20] MEDS: LORazepam 0.5 MG TABLET PO PRN ×3 (01:36→11:25)
[2019-10-20] MEDS: oxyCODONE/APAP 5/325 1 TAB TABLET PO PRN ×2 (01:37→06:27)
[2019-10-20 03:10] VITALS: BP 158/68
[2019-10-20 05:18] LABS: BASO % 0 % (0-3); EOS % 0 % (0-3); HEMATOCRIT 35.4 % (36.0-47.0); HEMOGLOBIN 11.6 g/dL (12.0-15.5); LYMPH # 2.5 x10^3/uL (1.0-4.8); LYMPH % 20 % (24-48); MEAN CORPUSCULAR HEMOGLOBIN 30 pg (25-35); MEAN CORPUSCULAR HGB CONC 33 g/dL (31-37); MEAN CORPUSCULAR VOLUME 91 fL (79-100); MONO # 1.3 x10^3/uL (0.0-1.1); MONO % 11 % (0-9); NEUT # 8.5 x10^3/uL (1.8-7.7); NEUT % 69 % (31-73); PLATELET COUNT 569 x10^3/uL (140-400); RED BLOOD COUNT 3.91 x10^6/uL (3.50-5.40); RED CELL DISTRIBUTION WIDTH 14.9 % (11.5-14.5); WHITE BLOOD COUNT 12.4 x10^3/uL (4.0-11.0)
[2019-10-20 05:40] LABS: CALCIUM 8.5 mg/dL (8.5-10.1); CREATININE 0.4 mg/dL (0.6-1.0); GFR 164.5; POTASSIUM 3.4 mmol/L (3.5-5.1)
[2019-10-20] MEDS: BUDESONIDE 0.5 MG/2 ML NEBU. NEB SCH (05:55)
[2019-10-20] MEDS: ALBUTEROL SULFATE 2.5 MG/3 ML NEBU. NEB SCH ×3 (05:56→15:54)
[2019-10-20 07:18] VITALS: BP 156/65
[2019-10-20] MEDS: SYMBICORT 160/4.5 NEB SCH (09:00)
[2019-10-20] MEDS: SPIRIVA RESPIMAT INH SCH (09:00)
[2019-10-20] MEDS: IV NORMAL SALINE 1000ML BAG 1,000 ML IV SCH (09:15)
[2019-10-20] MEDS: LOSARTAN POTASSIUM 25 MG TABLET. PO SCH (09:55)
[2019-10-20] MEDS: PANTOPRAZOLE 40 MG TABLET.DR. PO SCH (09:55)
[2019-10-20] MEDS: DOCUSATE SODIUM 100 MG CAPSULE. PO SCH (09:55)
[2019-10-20] MEDS: CEFDINIR 300 MG CAPSULE PO SCH (09:55)
[2019-10-20] MEDS: CYCLOBENZAPRINE 10 MG TABLET. PO PRN (09:55)
[2019-10-20] MEDS: CETIRIZINE HCL 10 MG TABLET. PO SCH (09:56)
[2019-10-20] MEDS: SERTRALINE 50 MG TABLET. PO SCH (09:56)
[2019-10-20] MEDS: amLODIPine BESYLATE 5 MG TABLET PO SCH (09:56)
[2019-10-20] MEDS: predniSONE 20 MG TABLET PO SCH (09:56)
[2019-10-20] MEDS: LACTOBACILLUS RHAMNOSUS GG 1 CAPSULE. PO SCH (09:56)
--- NOTE | 2019-10-20 11:10 | SNU/HH DC ---
DISCHARGE WITH HOME HEALTH DISCHARGE INFORMATION: Final Diagnosis: Problems Medical Problems: (1) Bilateral pulmonary infiltrates on chest x-ray Status: Acute (2) COPD exacerbation Status: Acute (3) Hypoxia Status: Acute (4) Smoking addiction Status: Acute Condition on Discharge: Stable CODE STATUS: Code Status: Full HOME HEALTH: Face to Face: I certify this patient is under my care and that I, or a nurse practitioner or physician's physical therapy assistant instructor working with me, had a face to face encounter that meets the physician face to face encounter requirements with this patient on []. Medical Complications: Pneumonia RN For Eval/Treatment: Yes Physical Therapy For: Evalulation/Treatment Speech Language Pathology For: Evaluation/Treatment Home Health Aide For: Self-care EARTH SCIENCE TEACHER For: Community Resources Pt Meets Homebound Status: Poor coordination w/ amb. POST DISCHARGE ORDERS: DIET AFTER DISCHARGE: Cardiac CERTIFICATION STATEMENT: Certification Statement: Certification Statement: Based on the above finding, I certify that this patient is confined to the home and needs intermittent retirement care, physical therapy and/or speech therapy, or continues to need occupational therapy.~ This patient is under my care, and I have initiated the establishment of the plan of care.~ This patient will be followed by myself or a community physician who will periodically review the plan of care. Home Meds Reported Medications Aspirin/Caffeine (MEDHAT ASPIRIN POWDER POUCHES) 1 Each Powd.pack, 1 EACH PO PRN Q6HRS PRN for PAIN, PKT 10/15/19 Ergocalciferol (Vitamin D2) (VITAMIN D2) 2,000 Unit Tablet, 5000 UNIT PO WEEKLY for supplement, TAB 10/15/19 Budesonide/Formoterol Fumarate (SYMBICORT 160-4.5 MCG INHALER) 10.2 Gm Hfa.aer.ad, 2 PUFF IH BID for soa, #10.6 GM 3 Refills 10/14/19 Budesonide/Formoterol Fumarate (SYMBICORT 160-4.5 MCG INHALER) 10.2 Gm Hfa.aer.ad, 2 PUFF IH BID for asthma, #10.6 GM 3 Refills 10/14/19 Alendronate Sodium (ALENDRONATE SODIUM) 70 Mg Tablet, 70 MG PO Q2WKS for osteoporosis 10/14/19 Cetirizine Hcl (CETIRIZINE HCL) 10 Mg Tablet, 10 MG PO DAILY for allergies 10/14/19 Oxycodone/Apap 5-325 (PERCOCET 5-325 MG TABLET ) 1 Each Tablet, 1 TAB PO QID PRN for PAIN, #120 TAB 04/05/18 Docusate Sodium (COLACE) 100 Mg Capsule, 1 CAP PO BID, #30 CAP 04/05/18 Zolpidem Tartrate (AMBIEN) 10 Mg Tablet, 1 TAB PO QHS, #30 TAB 5 Refills 04/05/18 Montelukast Sodium (MONTELUKAST SODIUM TABLET ) 10 Mg Tablet, 1 TAB PO DAILY, #30 TAB 5 Refills 04/05/18 Losartan Potassium (LOSARTAN POTASSIUM) 50 Mg Tablet, 50 MG PO DAILY, TAB 04/05/18 Amlodipine Besylate (AMLODIPINE BESYLATE) 5 Mg Tablet, 5 MG PO DAILY, TAB 04/05/18 Carisoprodol (SOMA) 350 Mg Tablet, 350 MG PO 08/18/13 Atorvastatin Calcium (LIPITOR) 40 Mg Tablet, 40 MG PO 08/18/13 Omeprazole (OMEPRAZOLE) 20 Mg Capsule., 20 MG PO 1X 08/18/13 WEST STROUD III DO Oct 20, 2019 11:10
[2019-10-20 11:24] VITALS: BP 162/79
[2019-10-20] MEDS ORDERED: TOPIRAMATE 25 MG TABLET. PO SCH (12:00)
--- NOTE | 2019-10-20 12:26 | NUR ---
SS following up with discharge planning. Discharge orders received for home with home healthcare. Discharge orders and referral phoned and faxed to [facility], ; fax [phone]. SS currently awaiting six minute walk results. SS will continue to follow for discharge planning.
--- NOTE | 2019-10-20 12:27 | PDOC ---
PULMONARY PROGRESS NOTES Subjective BETTER TODAY LESS SOA Vitals Vital Signs Date Time Temp Pulse Resp B/P (MAP) Pulse Ox O2 Delivery O2 Flow Rate FiO2 10/20/19 11:24 98.5 75 18 162/79 (106) 97 Nasal Cannula 5.0 98.5 Comments APPEARS DEPRESSED PT AGREES ROS: No Nausea, No Chest Pain, No Abdominal Pain, No Increase Cough General: Alert Lungs: Clear Cardiovascular: S1, S2 Abdomen: Soft Neuro Exam: Alert Extremities: No Edema Skin: Warm Labs Laboratory Tests Test 10/19/19 03:50 10/19/19 07:20 10/20/19 04:11 Sodium Level 143 mmol/L (136-145) 143 mmol/L (136-145) Potassium Level 4.5 mmol/L (3.5-5.1) 3.4 mmol/L (3.5-5.1) Chloride Level 101 mmol/L (98-107) 103 mmol/L (98-107) Carbon Dioxide Level 32 mmol/L (21-32) 38 mmol/L (21-32) Anion Gap 10 (6-14) 2 (6-14) Blood Urea Nitrogen 8 mg/dL (7-20) 6 mg/dL (7-20) Creatinine 0.5 mg/dL (0.6-1.0) 0.4 mg/dL (0.6-1.0) Estimated GFR (Cockcroft-Gault) 127.2 164.5 Glucose Level 68 mg/dL (70-99) 87 mg/dL (70-99) Calcium Level 8.8 mg/dL (8.5-10.1) 8.5 mg/dL (8.5-10.1) White Blood Count 14.3 x10^3/uL (4.0-11.0) 12.4 x10^3/uL (4.0-11.0) Red Blood Count 4.31 x10^6/uL (3.50-5.40) 3.91 x10^6/uL (3.50-5.40) Hemoglobin 12.7 g/dL (12.0-15.5) 11.6 g/dL (12.0-15.5) Hematocrit 38.9 % (36.0-47.0) 35.4 % (36.0-47.0) Mean Corpuscular Volume 90 fL (79-100) 91 fL (79-100) Mean Corpuscular Hemoglobin 29 pg (25-35) 30 pg (25-35) Mean Corpuscular Hemoglobin Concent 33 g/dL (31-37) 33 g/dL (31-37) Red Cell Distribution Width 14.8 % (11.5-14.5) 14.9 % (11.5-14.5) Platelet Count 659 x10^3/uL (140-400) 569 x10^3/uL (140-400) Neutrophils (%) (Auto) 69 % (31-73) 69 % (31-73) Lymphocytes (%) (Auto) 20 % (24-48) 20 % (24-48) Monocytes (%) (Auto) 10 % (0-9) 11 % (0-9) Eosinophils (%) (Auto) 0 % (0-3) 0 % (0-3) Basophils (%) (Auto) 1 % (0-3) 0 % (0-3) Neutrophils # (Auto) 9.8 x10^3/uL (1.8-7.7) 8.5 x10^3/uL (1.8-7.7) Lymphocytes # (Auto) 2.9 x10^3/uL (1.0-4.8) 2.5 x10^3/uL (1.0-4.8) Monocytes # (Auto) 1.5 x10^3/uL (0.0-1.1) 1.3 x10^3/uL (0.0-1.1) Eosinophils # (Auto) 0.0 x10^3/uL (0.0-0.7) 0.0 x10^3/uL (0.0-0.7) Basophils # (Auto) 0.1 x10^3/uL (0.0-0.2) 0.0 x10^3/uL (0.0-0.2) Laboratory Tests Test 10/20/19 04:11 White Blood Count 12.4 x10^3/uL (4.0-11.0) Red Blood Count 3.91 x10^6/uL (3.50-5.40) Hemoglobin 11.6 g/dL (12.0-15.5) Hematocrit 35.4 % (36.0-47.0) Mean Corpuscular Volume 91 fL (79-100) Mean Corpuscular Hemoglobin 30 pg (25-35) Mean Corpuscular Hemoglobin Concent 33 g/dL (31-37) Red Cell Distribution Width 14.9 % (11.5-14.5) Platelet Count 569 x10^3/uL (140-400) Neutrophils (%) (Auto) 69 % (31-73) Lymphocytes (%) (Auto) 20 % (24-48) Monocytes (%) (Auto) 11 % (0-9) Eosinophils (%) (Auto) 0 % (0-3) Basophils (%) (Auto) 0 % (0-3) Neutrophils # (Auto) 8.5 x10^3/uL (1.8-7.7) Lymphocytes # (Auto) 2.5 x10^3/uL (1.0-4.8) Monocytes # (Auto) 1.3 x10^3/uL (0.0-1.1) Eosinophils # (Auto) 0.0 x10^3/uL (0.0-0.7) Basophils # (Auto) 0.0 x10^3/uL (0.0-0.2) Sodium Level 143 mmol/L (136-145) Potassium Level 3.4 mmol/L (3.5-5.1) Chloride Level 103 mmol/L (98-107) Carbon Dioxide Level 38 mmol/L (21-32) Anion Gap 2 (6-14) Blood Urea Nitrogen 6 mg/dL (7-20) Creatinine 0.4 mg/dL (0.6-1.0) Estimated GFR (Cockcroft-Gault) 164.5 Glucose Level 87 mg/dL (70-99) Calcium Level 8.5 mg/dL (8.5-10.1) Medications Active Scripts Medications Dose Route/Sig Max Daily Dose Days Date Category Ja Aspirin Powder Pouches (Aspirin/Caffeine) 1 Each Powd.pack 1 Each PO PRN Q6HRS PRN 10/15/19 Reported Vitamin D2 (Ergocalciferol (Vitamin D2)) 2,000 Unit Tablet 5,000 Unit PO WEEKLY 10/15/19 Reported Symbicort 160-4.5 Mcg Inhaler (Budesonide/Formoterol Fumarate) 10.2 Gm Hfa.aer.ad 2 Puff IH BID 10/14/19 Reported Symbicort 160-4.5 Mcg Inhaler (Budesonide/Formoterol Fumarate) 10.2 Gm Hfa.aer.ad 2 Puff IH BID 10/14/19 Reported Alendronate Sodium 70 Mg Tablet 70 Mg PO Q2WKS 10/14/19 Reported Cetirizine Hcl 10 Mg Tablet 10 Mg PO DAILY 10/14/19 Reported Percocet 5-325 Mg Tablet (Oxycodone/Acetaminophen) 1 Each Tablet 1 Tab PO QID PRN 04/05/18 Reported Colace (Docusate Sodium) 100 Mg Capsule 1 Cap PO BID 04/05/18 Reported Ambien (Zolpidem Tartrate) 10 Mg Tablet 1 Tab PO QHS 04/05/18 Reported Montelukast Sodium Tablet (Montelukast Sodium) 10 Mg Tablet 1 Tab PO DAILY 04/05/18 Reported Losartan Potassium 50 Mg Tablet 50 Mg PO DAILY 04/05/18 Reported Amlodipine Besylate 5 Mg Tablet 5 Mg PO DAILY 04/05/18 Reported Soma (Carisoprodol) 350 Mg Tablet 350 Mg PO 08/18/13 Reported Lipitor (Atorvastatin Calcium) 40 Mg Tablet 40 Mg PO 08/18/13 Reported Omeprazole 20 Mg Capsule. 20 Mg PO 1X 08/18/13 Reported Impression . IMPRESSION: 1. Acute hypoxic respiratory failure secondary to acute exacerbation of chronic obstructive pulmonary disease and acute bronchitis. 2. A 35-40 years of tobacco use, suspect underlying chronic obstructive pulmonary disease. 3. Mild leukocytosis on admission, improved now. 4. DEPRESSION Plan . PT AGREES TO START [facility] D/W DR LUANNE ANNE HOME FOLLOW UP IN OFFICE JULIO DUMAS MD Oct 20, 2019 12:27
--- NOTE | 2019-10-20 12:31 | PDOC ---
PROGRESS NOTES Assessment Assessment Worsening of headaches x 2 days. Hypoxia. SOB. Cough. Chills. Bilateral pulmonary infiltrates. Chronic headaches. Leukocytosis. COPD. HTN. HLD. IIP? Obesity. RECOMMENDATIONS/PLAN: Waiting for brain MRI w/wo contrast. Topamax 25 mg bid. Treat medical diseases. Pain control. Continue Statin HS. OT/PT. History of Present Illness This is a 58-year-old female patient with past medical history of hypertension, COPD, smoking and other medical diseases has been having respiratory symptoms after sickness of family members. Her symptoms became worse so she eventually came to [facility] for medical attention. She has history of chronic headaches in her entire head for about 2 years nut her headaches became worse in the past a couple of days with blurred vision, so Neurology consultation is requested. 10/20/19: Still has headaches. Past Medical History Cardiovascular: HTN Pulmonary: COPD PAST SURGERY HISTORY: Appendectomy, Hysterectomy, Tonsillectomy, Tubal ligation, BLADDER TIGHTENING ALLERGY: NKDA MEDICATIONS: Refer to [facility] FAMILY HISTORY: Non contributory. SOCIAL HISTORY: Lives with her family. Smoking Status: Current Every Day Smoker Alcohol Use: None Drug Use: Marijuana REVIEW OF SYSTEMS: Constitutional: Obesity. Head: No traumatic brain or head injury. Skin: No edema, or rash. Ear: No infection. Eyes: No vision loss. Nose: No bleeding or purulent discharges. Hearing: No hearing decrease. Neck: No injury. Breast: No history of cancer, masses,or discharges. Cardiac: HTN, HLD. Pulmonary: COPD. GI: No GI ulcer, GI bleeding. Urinary/genital: UTI. Endocrinologic: Obesity. Skeletomuscular: No muscular atrophy. Neurological: see HP. Psychiatric: Substance use/abuse. Otherwise, not [id number] review of systems. PHYSICAL EXAMINATION: General appearance is in subacute distress. HEENT: Normocephalic and nontraumatic. Eyes, nose, ears, and throat are unremarkable. Neck is supple. No lymphadenopathy. No crepitus. Cardiovascular: S1, S2, regular rate and rhythm. Pulmonary: decreased to auscultation bilaterally. Abdomen: Bowel sounds are positive. Extremities: No rash, lesions, or edema. No restriction of range of motion NEUROLOGICAL EXAMINATION: Awake. Oriented to time, place and person. PERRL. EOMI. CN: no focal findings. Muscle tone: within normal. Muscle strength: 4 DTR: 1+ Plantar reflex: Flexor response bilaterally Gait: not examined in bed. At baseline normal. Sensory exam: no abnormal findings. No cerebellar signs elicited. F-T-N test fine. Objective Objective Vital Signs Date Time Temp Pulse Resp B/P (MAP) Pulse Ox O2 Delivery O2 Flow Rate FiO2 10/20/19 11:24 98.5 75 18 162/79 (106) 97 Nasal Cannula 5.0 98.5 Intake and Output 10/20/19 07:00 Intake Total 1000 ml Balance 1000 ml Intake Oral 1000 ml # Voids 6 Vitals Signs Vitals VS - Last 72 Hours, by Label Date Time Temp Pulse Resp B/P (MAP) Pulse Ox O2 Delivery O2 Flow Rate FiO2 10/20/19 11:24 98.5 75 18 162/79 (106) 97 Nasal Cannula 5.0 98.5 10/20/19 11:23 96 Nasal Cannula 4.0 10/20/19 09:59 98 Nasal Cannula 10/20/19 09:56 80 156/65 10/20/19 09:55 80 156/65 10/20/19 08:00 Nasal Cannula 5.0 10/20/19 07:18 98.2 80 20 156/65 (95) 98 Nasal Cannula 5.0 98.2 10/20/19 06:27 98 Nasal Cannula 5.0 10/20/19 05:57 98 Nasal Cannula 5.0 10/20/19 03:10 97.6 84 18 158/68 (98) 95 Nasal Cannula 5.0 97.6 10/20/19 02:37 94 Nasal Cannula 5.0 10/20/19 01:37 94 Nasal Cannula 5.0 10/19/19 23:10 98.6 79 18 158/67 (97) 94 Nasal Cannula 5.0 98.6 10/19/19 20:00 Nasal Cannula 5.0 10/19/19 19:33 93 Nasal Cannula 5.0 10/19/19 19:10 98.0 77 19 160/67 (98) 92 Nasal Cannula 5.0 98.0 10/19/19 18:21 94 Nasal Cannula 5.0 10/19/19 17:21 91 Nasal Cannula 5.0 10/19/19 16:03 91 Nasal Cannula 5.0 10/19/19 15:31 98.7 89 20 161/73 (102) 93 Nasal Cannula 5.0 98.7 10/19/19 12:26 88 Nasal Cannula 4.0 10/19/19 11:52 98.0 88 20 175/85 (115) 88 Nasal Cannula 4.0 98.0 10/19/19 11:49 91 Nasal Cannula 5.0 10/19/19 11:04 89 Nasal Cannula 4.0 10/19/19 08:37 79 182/87 10/19/19 08:36 79 182/87 10/19/19 08:00 Nasal Cannula 4.0 10/19/19 07:39 89 Nasal Cannula 4.0 10/19/19 07:30 98.7 79 20 182/87 (118) 91 Nasal Cannula 4.0 98.7 Laboratory Laboratory Laboratory Tests Test 10/20/19 04:11 White Blood Count 12.4 x10^3/uL (4.0-11.0) Red Blood Count 3.91 x10^6/uL (3.50-5.40) Hemoglobin 11.6 g/dL (12.0-15.5) Hematocrit 35.4 % (36.0-47.0) Mean Corpuscular Volume 91 fL (79-100) Mean Corpuscular Hemoglobin 30 pg (25-35) Mean Corpuscular Hemoglobin Concent 33 g/dL (31-37) Red Cell Distribution Width 14.9 % (11.5-14.5) Platelet Count 569 x10^3/uL (140-400) Neutrophils (%) (Auto) 69 % (31-73) Lymphocytes (%) (Auto) 20 % (24-48) Monocytes (%) (Auto) 11 % (0-9) Eosinophils (%) (Auto) 0 % (0-3) Basophils (%) (Auto) 0 % (0-3) Neutrophils # (Auto) 8.5 x10^3/uL (1.8-7.7) Lymphocytes # (Auto) 2.5 x10^3/uL (1.0-4.8) Monocytes # (Auto) 1.3 x10^3/uL (0.0-1.1) Eosinophils # (Auto) 0.0 x10^3/uL (0.0-0.7) Basophils # (Auto) 0.0 x10^3/uL (0.0-0.2) Sodium Level 143 mmol/L (136-145) Potassium Level 3.4 mmol/L (3.5-5.1) Chloride Level 103 mmol/L (98-107) Carbon Dioxide Level 38 mmol/L (21-32) Anion Gap 2 (6-14) Blood Urea Nitrogen 6 mg/dL (7-20) Creatinine 0.4 mg/dL (0.6-1.0) Estimated GFR (Cockcroft-Gault) 164.5 Glucose Level 87 mg/dL (70-99) Calcium Level 8.5 mg/dL (8.5-10.1) Microbiology 10/14/19 Blood Culture - Final, Complete NO GROWTH AFTER 5 DAYS Medication Medications Current Medications Non-Formulary Medication (Alendronate Sodium ) 70 mg Q2WKS PO ; Start 10/28/19 at 09:00; Status UNV Sertraline HCl (Zoloft) 50 mg DAILY PO Last administered on 10/20/19at 09:56; Start 10/19/19 at 17:30 Topiramate (Topamax) 25 mg BID PO ; Start 10/20/19 at 12:00 Comment Review of Relevant I have reviewed the following items yang (where applicable) has been applied. TERRI VÁZQUEZ MD Oct 20, 2019 12:31
[2019-10-20] MEDS ORDERED: GADOTERATE 7.5 MMOL/15ML VIAL. IVP ONE (12:45)
--- NOTE | 2019-10-20 13:48 | RAD ---
BRAIN WO/W CONTRAST Date: 10/20/2019 5:38 PM Indication: Worsening headache Comparison: 11/15/2007. Technique: Multiplanar multisequence MRI of the brain was performed with and without intravenous contrast using the standard protocol. 15 cc Dotarem contrast was administered intravenously during the exam. Findings: No acute infarct. No acute or chronic hemorrhage. The ventricles are normal in size and configuration without hydrocephalus. Mild scattered FLAIR hyperintensities in the subcortical and periventricular deep white matter, a nonspecific finding, most commonly seen with chronic small vessel ischemic disease. No abnormal enhancement. The scalp and calvarium are normal. The pituitary and sella are normal. No Chiari malformation. The visualized upper cervical spine is normal. The visualized orbits and globes are normal. The visualized paranasal sinuses are clear. The mastoid air cells are clear. Normal flow voids within the vertebral, basilar, and internal carotid arteries indicating patency. IMPRESSION: 1. No acute infarct or hemorrhage. No mass or abnormal enhancement. 2. Mild scattered FLAIR hyperintensities in the subcortical and periventricular deep white matter, a nonspecific finding, most commonly seen with chronic small vessel ischemic disease. Electronically signed by: Deion Gatica MD (10/20/2019 1:45 PM) [id number]
--- NOTE | 2019-10-20 14:50 | NUR ---
SS following up with discharge planning. Order for oxygen received. SS phoned and faxed script for oxygen and referral to [facility], ; fax [phone]. Oxygen tank provided to pt's RN for home.
[2019-10-20] MEDS: ENOXAPARIN 40 MG/0.4 ML SYRINGE. SQ SCH (15:01)
[2019-10-20 15:19] VITALS: BP 166/72
--- NOTE | 2019-10-20 16:02 | NUR ---
Pt received a breathing treatment just prior to leaving, taught how to use her o2 tank, and reviewed her discharge papers with reserving oxygen consumption. IV and telemonitor taken off. Wheeled out by shadow to main entrance with family members and all belongings
[2019-10-28] MEDS ORDERED: NON FORMULARY ITEM (Alendronate Sodium 70 MG) PO SCH (09:00)
== END 2019-10-20 16:02 | disposition home health service (06) | DRG 193 ==
LOC: ER 10:59 → 5 SOUTH 13:52 → 6 SOUTH 10-18 10:30
PROVIDERS: ADMIT Internal Medicine; ATTEND Internal Medicine
DX: J18.9 Pneumonia, unspecified organism (principal); J96.01 Acute respiratory failure with hypoxia; E43 Unspecified severe protein-calorie malnutrition; J44.1 Chronic obstructive pulmonary disease with (acute) exacerbation; J44.0 Chronic obstructive pulmonary disease with (acute) lower respiratory infection; E87.6 Hypokalemia; E66.9 Obesity, unspecified; Z68.34 Body mass index [BMI] 34.0-34.9, adult; E78.00 Pure hypercholesterolemia, unspecified; E78.5 Hyperlipidemia, unspecified; F17.210 Nicotine dependence, cigarettes, uncomplicated; F32.9 Major depressive disorder, single episode, unspecified; G44.209 Tension-type headache, unspecified, not intractable; G47.33 Obstructive sleep apnea (adult) (pediatric); G89.29 Other chronic pain; I10 Essential (primary) hypertension; J20.9 Acute bronchitis, unspecified; K21.9 Gastro-esophageal reflux disease without esophagitis; M81.0 Age-related osteoporosis without current pathological fracture; Z71.6 Tobacco abuse counseling; Z79.899 Other long term (current) drug therapy; Z90.49 Acquired absence of other specified parts of digestive tract; Z90.710 Acquired absence of both cervix and uterus; Z98.51 Tubal ligation status; Z88.5 Allergy status to narcotic agent; Z88.8 Allergy status to other drugs, medicaments and biological substances; D72.829 Elevated white blood cell count, unspecified; M19.90 Unspecified osteoarthritis, unspecified site
CPT/HCPCS: 36415; 70553; 71046; 80048; 80053; 80061; 83605; 83880; 84145; 84443; 84484; 85025; 87040; 87449; 87804; 93005; 94618; 94640; 94667; 94668; 94760; 96365; 96375; A9575; J0456; J0696; J1650; J7030; J7050; J7512; J7613; J7620; J7626; 97110; 97530; 97535; 99285-25; G0378

== ENCOUNTER → 2020-12-06 | Outpatient (CLI) | payer BC ==
[~2020-12-06] VITALS: Ht 152.4 cm; Wt 75.7 kg
[2020-12-06] VITALS (11 sets, daily range): BP systolic 93–134; BP diastolic 55–72
[~2020-12-06] MED LIST changes: +ALBU2.5V8 INH; +ALEN70TA71 PO; +AMLO-186 PO; -AMLO5TAB10 PO; +ASPI1POW PO; +BUDE10.2 IH; +CALC-98 PO; +CETI10TA16 PO; +CHOL500021 PO; +CONTRAST GIVEN. MC PRN; +ERGO2000 PO; +IOHEXOL 240 MG/ML 50ML VIAL. IJ ONE; +IOHEXOL 240 MG/ML 50ML VIAL. ONE; +IPRA4AER IH; +KETOROLAC 30 MG/ML VIAL. IVP ONE; +LIDOCAINE WITH 8.4% SOD BICARB 3 ML DISP.SYRIN. IJ ONE; +LIDOCAINE WITH 8.4% SOD BICARB 3 ML DISP.SYRIN. ONE; +LORA2TAB89 PO; +MIDAZOLAM HCL/PF 2 MG/2 ML VIAL. IV ONE; +MIDAZOLAM HCL/PF 2 MG/2 ML VIAL. ONE; +SERT50TA PO; +ceFAZolin SODIUM IV Push 1 GM VIAL. IVP ONE; +fentaNYL PF VIAL 250 MCG/5 ML VIAL IV ONE; +fentaNYL PF VIAL 250 MCG/5 ML VIAL ONE; +oxyCODONE/APAP 5/325 1 TAB TABLET ONE; +oxyCODONE/APAP 5/325 1 TAB TABLET PO ONE
[2020-12-06 08:24] LABS: BASO # 0.1 x10^3/uL (0.0-0.2); BASO % 1 % (0-3); EOS # 0.1 x10^3/uL (0.0-0.7); EOS % 1 % (0-3); HEMATOCRIT 44.7 % (36.0-47.0); HEMOGLOBIN 14.8 g/dL (12.0-15.5); LYMPH # 1.9 x10^3/uL (1.0-4.8); LYMPH % 34 % (24-48); MEAN CORPUSCULAR HEMOGLOBIN 30 pg (25-35); MEAN CORPUSCULAR HGB CONC 33 g/dL (31-37); MEAN CORPUSCULAR VOLUME 91 fL (79-100); MONO # 0.5 x10^3/uL (0.0-1.1); MONO % 10 % (0-9); NEUT # 3.1 x10^3/uL (1.8-7.7); NEUT % 54 % (31-73); PLATELET COUNT 384 x10^3/uL (140-400); RED BLOOD COUNT 4.92 x10^6/uL (3.50-5.40); RED CELL DISTRIBUTION WIDTH 15.2 % (11.5-14.5); WHITE BLOOD COUNT 5.6 x10^3/uL (4.0-11.0)
[2020-12-06 08:33] LABS: PROTHROMBIN TIME PATIENT 12.3 SEC (11.7-14.0)
--- NOTE | 2020-12-06 16:26 | RAD ---
Fluoroscopically guided kyphoplasty T8, T9 Indication: compression fractures, pathologic in nature secondary to bone demineralization with severe back pain, refractory to conservative treatment measures, and limited activities of daily living. Fluoro time:8 Minutes Dose area product: 10.5 Gycm2 Moderate sedation: The patient was appropriately monitored by a qualified independent observer throughout the course of the moderate sedation. [id number] sedation time:54 minutes Consent: The risks and benefits of the procedure were discussed with the patient. Informed consent was obtained. The patient was brought to the fluoroscopy suite and placed in the prone position. A timeout procedure was performed. Preprocedural antibiotics were administered. Procedure: The overlying skin was prepped and draped in the usual sterile fashion. All elements of maximal sterile barrier technique including the use of a cap, mask, sterile gown, sterile gloves, large sterile sheet, appropriate hand hygiene, and 2% chlorhexidine for cutaneous antisepsis (or acceptable alternative antiseptic per current guidelines) were followed for this procedure. Using a left transpedicular approach, and direct fluoroscopic guidance, a trocar needle was advanced to the posterior third of the targeted T8 and T9 vertebral bodies . At each level a vertebral augmentation balloon was then coaxially introduced through the needle, into the more central vertebral body and was deployed. A curved cement delivery needle was advanced into each contralateral vertebral body. Contrast opacified polymethylmethacrylate was then very slowly and carefully introduced through the vertebral augmentation needles, using strict fluoroscopic control. Once adequate filling had been achieved the needles were removed and manual pressure was held. No significant extravasation or complication was identified. Sterile dressing was applied. Patient tolerated the procedure well, without apparent complication. Impression: Fluoroscopically guided kyphoplasty, T8, T9
== END | disposition home or self-care (01) ==
LOC: INTRAD 06:59
PROVIDERS: ATTEND Physical Medicine & Rehabilitation
DX: S22.060A Wedge compression fracture of T7-T8 vertebra, initial encounter for closed fracture (principal); S22.079A Unspecified fracture of T9-T10 vertebra, initial encounter for closed fracture; I10 Essential (primary) hypertension; E78.00 Pure hypercholesterolemia, unspecified; J44.9 Chronic obstructive pulmonary disease, unspecified; K21.9 Gastro-esophageal reflux disease without esophagitis; M81.0 Age-related osteoporosis without current pathological fracture; F41.9 Anxiety disorder, unspecified; F32.9 Major depressive disorder, single episode, unspecified; F17.210 Nicotine dependence, cigarettes, uncomplicated; Z90.710 Acquired absence of both cervix and uterus; Z98.51 Tubal ligation status; Z98.890 Other specified postprocedural states; Z79.899 Other long term (current) drug therapy; Z88.8 Allergy status to other drugs, medicaments and biological substances; X58.XXXA Exposure to other specified factors, initial encounter; Y93.89 Activity, other specified; Y92.89 Other specified places as the place of occurrence of the external cause; Y99.8 Other external cause status
CPT/HCPCS: 22513; 22515; 36415; 85025; 85610; 87426; 99152; 99153; C1713; J0690; J1885; J2250; J3010; J3490; Q9966